=== PATIENT | male | born 1955 | race Caucasian/White ===

== ENCOUNTER 2017-02-16 18:20 | Inpatient (IN) | payer OTHER, MEDICAID ==
[~2017-02-16] VITALS: Ht 172.7 cm; Wt 64.9 kg
[2017-02-16 02:48] VITALS: BP 92/55
[2017-02-16] MEDS ORDERED: CHLORDIAZEPOXIDE 25MG CAPSULE PO ONE (19:30)
[2017-02-16] MEDS ORDERED: LORAZEPAM 2MG/ML CPJ IV ONE ×4 (19:30→20:30)
[2017-02-16] MEDS ORDERED: MULTIVITAMINS,THER W-MINERALS TABLET PO STA (19:31)
[2017-02-16] MEDS ORDERED: SODIUM CHLORIDE 0.9% 1,000 ML IV ONE (19:32)
[2017-02-16] MEDS ORDERED: ONDANSETRON HCL 4MG/2ML VIAL IV ONE (19:45)
[2017-02-16 19:54] LABS: BASOPHILS % 0.6 % (0.0-2.0); HEMATOCRIT. 29.1 % (42.0-52.0); HEMOGLOBIN. 9.2 g/dL (14.0-18.0); LYMPHOCYTES % 25.3 % (20.0-50.0); MEAN CORPUSCULAR HEMOGLOBIN 24.5 pg (28.0-32.0); MEAN CORPUSCULAR VOLUME 77.6 fL (80.0-94.0); MEAN PLATELET VOLUME 8.1 fl (7.4-10.4); MONOCYTES % 12.9 % (2.0-8.0); NEUTROPHILS % 61.2 % (40.0-76.0); RED BLOOD CELL COUNT 3.75 mill/uL (4.7-6.1)
[2017-02-16 19:57] LABS: CHLORIDE 96 mEq/L (98-107)
[2017-02-16 20:06] LABS: CARBON DIOXIDE 15 mEq/L (21-32); ETHANOL BLOOD 139 mg/dL
[2017-02-16 20:07] LABS: AMMONIA 172 uMol/L (<32)
[2017-02-16 20:21] LABS: PLATELET ESTIMATE MARKEDLY DECREASED
[2017-02-16 20:22] LABS: RED CELL DISTRIBUTION WIDTH 19.1 % (11.6-14.6)
[2017-02-16] MEDS ORDERED: LORAZEPAM 2MG/ML CPJ ONE ×2 (20:29→20:36)
[2017-02-16 20:33] LABS: PLATELET 48 x1000/uL (130-400)
[2017-02-16] MEDS ORDERED: MIDAZOLAM HCL 2 MG/2 ML VIAL IV ONE ×7 (20:45→22:00)
[2017-02-16] MEDS ORDERED: MIDAZOLAM HCL 5 MG/ML VIAL ONE ×2 (20:55→21:10)
[2017-02-16] MEDS ORDERED: ETOMIDATE 2MG/ML 10ML VIAL IV ONE (21:00)
[2017-02-16] MEDS ORDERED: SUCCINYLCHOLINE CHLORIDE 200MG/10ML VIAL IV ONE (21:00)
[2017-02-16] MEDS ORDERED: WATER IV ONE (22:30)
[2017-02-16] MEDS ORDERED: DEXT 5% IV ONE (22:30)
[2017-02-16] MEDS ORDERED: LORAZEPAM IV ONE (22:30)
[2017-02-16] MEDS ORDERED: DEXT 5%/0.45% NACL 1000ML 1,000 ML IV SCH (22:43)
[2017-02-16] MEDS ORDERED: DOCUSATE SODIUM 100MG CAPSULE PO PRN (22:45)
[2017-02-16] MEDS ORDERED: NA PHOS,M-B/NA PHOS,DI-BA ENEMA 118ML PR PRN (22:45)
[2017-02-16] MEDS ORDERED: WATER IV NR (23:00)
[2017-02-16] MEDS ORDERED: DEXT 5% IV NR (23:00)
[2017-02-16] MEDS ORDERED: LORAZEPAM IV NR (23:00)
[2017-02-16] MEDS ORDERED: ONDANSETRON HCL 4MG/2ML VIAL IV PRN (23:32)
[2017-02-16] MEDS ORDERED: KETOROLAC 15MG/ML VIAL IV PRN (23:32)
[2017-02-16] MEDS ORDERED: NITROGLYCERIN 0.4MG TABLET SL SL PRN (23:32)
[2017-02-16] MEDS ORDERED: DIPHENHYDRAMINE 50MG/ML VIAL IV PRN (23:33)
[2017-02-16] MEDS ORDERED: CLONIDINE 0.1MG TABLET PO PRN (23:33)
[2017-02-16] MEDS ORDERED: MAGNESIUM/ALUMINUM HYDROXIDE/SIMETHICONE 30ML UDC PO PRN (23:33)
[2017-02-16] MEDS ORDERED: GUAIFENESIN 200MG/10ML SUGAR FREE UDC PO PRN (23:33)
[2017-02-16] MEDS ORDERED: IPRATROPIUM/ALBUTEROL 0.5-3(2.5)MG/3ML NEB INH PRN (23:33)
[2017-02-16] MEDS ORDERED: LORAZEPAM 2MG/ML CPJ IV PRN (23:34)
[2017-02-17] VITALS (78 sets, daily range): BP systolic 78–131; BP diastolic 44–88
[2017-02-17] MEDS ORDERED: ETOMIDATE 2MG/ML 10ML VIAL IV ONE (00:30)
[2017-02-17] MEDS ORDERED: SUCCINYLCHOLINE CHLORIDE 200MG/10ML VIAL IV ONE (00:30)
[2017-02-17] MEDS ORDERED: PROPOFOL 10MG/ML 100ML 100 ML IV ONE (00:30)
[2017-02-17] MEDS ORDERED: ACETAMINOPHEN 650MG SUPP PR ONE (01:00)
[2017-02-17] MEDS: MVI, ADULT NO.1 10 ML, FOLIC ACID 1 MG, THIAMINE HCL 100 MG in SODIUM CHLORIDE 0.9% 1,0... IV SCH ×12 (02:00→21:40)
[2017-02-17] MEDS ORDERED: SODIUM CHLORIDE 0.9% 500 ML IV ONE (03:00)
[2017-02-17] MEDS ORDERED: MIDAZOLAM 50 MG in DEXTROSE 5% WATER 50 ML IV PRN (05:45)
[2017-02-17] MEDS ORDERED: MORPHINE SULFATE 4 MG/ML CPJ (NOT FOR IM USE) IV PRN (05:45)
[2017-02-17] MEDS ORDERED: CHLORDIAZEPOXIDE 25MG CAPSULE PO SCH (06:00)
[2017-02-17 06:13] LABS: BG BASE EXCESS -4.4 mmol/L (-2.0-2.0); BG CARBOXYHEMOGLOBIN 1.2 % (0.5-1.5); BG FRACTION INSPIRED OXYGEN 100; BG HCO3 ACT 18.4 mmol/L (22.0-26.0); BG OXYHEMOGLOBIN 97.8 % (94.0-97.0); BG PCO2 26.1 mmHg (35.0-45.0); BG PH 7.467 (7.350-7.450); BG SAMPLE SITE LEFT RADIAL; BG TIDAL VOLUME(mL) 550 mL; BG TOTAL HEMOGLOBIN 8.7 g/dL (12.0-18.0); BG VENT MODE VENT - A/C; BG VENT RATE 14 set
[2017-02-17] MEDS ORDERED: DEXT 5%/0.45% NACL 1000ML 1,000 ML IV SCH (06:30)
[2017-02-17] MEDS ORDERED: NA PHOS,M-B/NA PHOS,DI-BA ENEMA 118ML PR PRN (06:30)
[2017-02-17] MEDS ORDERED: MVI, ADULT NO.1 10 ML, FOLIC ACID 1 MG, THIAMINE HCL 100 MG in SODIUM CHLORIDE 0.9% 1,0... IV SCH ×4 (07:00)
[2017-02-17 08:56] LABS: HEMATOCRIT. 25.5 % (42.0-52.0); HEMOGLOBIN. 7.8 g/dL (14.0-18.0); MEAN CORPUSCULAR HEMOGLOBIN 23.5 pg (28.0-32.0); MEAN CORPUSCULAR VOLUME 77.4 fL (80.0-94.0); MEAN PLATELET VOLUME 8.2 fl (7.4-10.4); RED CELL DISTRIBUTION WIDTH 18.8 % (11.6-14.6)
[2017-02-17] MEDS ORDERED: FAMOTIDINE 20MG/2ML VIAL IV SCH ×2 (09:00)
[2017-02-17] MEDS ORDERED: CEFTRIAXONE 2 G in DEXTROSE 5% WATER 50 ML IV SCH (09:00)
[2017-02-17 09:11] LABS: PLATELET 27 x1000/uL (130-400)
[2017-02-17 09:18] LABS: CARBON DIOXIDE 22 mEq/L (21-32); CHLORIDE 105 mEq/L (98-107)
[2017-02-17] MEDS: PANTOPRAZOLE SODIUM 40 MG/VIAL IV SCH (09:22)
[2017-02-17 09:23] LABS: CREATINE KINASE 1244 IU/L (39-308)
[2017-02-17 09:24] LABS: AMMONIA 44 uMol/L (<32)
[2017-02-17] MEDS ORDERED: POTASSIUM CHLORIDE 20MEQ/PACKET PO SCH (10:30)
[2017-02-17] MEDS ORDERED: KCL 20MEQ/100ML PREMIX 100 ML IV SCH (11:00)
[2017-02-17] MEDS: POTASSIUM CHLORIDE INJ 30 MEQ in DEXT 5%/0.9% NACL 1,000 ML IV SCH ×2 (11:48→21:09)
[2017-02-17] MEDS: PIPERACILLIN/TAZ 3.375G PREMIX 50 ML IV SCH ×2 (13:45→21:40)
[2017-02-17] MEDS: CHLORDIAZEPOXIDE 25MG CAPSULE PO SCH ×2 (13:46→21:56)
[2017-02-17] MEDS: IPRATROPIUM/ALBUTEROL 0.5-3(2.5)MG/3ML NEB HHN SCH ×2 (14:16→20:49)
[2017-02-17 15:42] LABS: PLATELET ESTIMATE MARKEDLY DECREASED
[2017-02-17] MEDS: ACETAMINOPHEN 325MG TABLET PO PRN (23:26)
[2017-02-18] VITALS (87 sets, daily range): BP systolic 76–119; BP diastolic 42–78
[2017-02-18] MEDS: IPRATROPIUM/ALBUTEROL 0.5-3(2.5)MG/3ML NEB HHN SCH ×4 (02:18→20:34)
[2017-02-18 03:04] LABS: CLARITY URINE TURBID (CLEAR); COLOR URINE DARK YELLOW (YELLOW); GLUCOSE URINE NEGATIVE (NEGATIVE); KETONES URINE TRACE (NEGATIVE); LEUKOCYTE ESTERASE URINE TRACE (NEGATIVE); NITRITE URINE POSITIVE (NEGATIVE); OCCULT BLOOD URINE 3+ (NEGATIVE); PH URINE 5.5 (4.5-8.0); PROTEIN URINE 3+ (NEGATIVE); SPECIFIC GRAVITY URINE 1.034 (1.005-1.030); UROBILINOGEN URINE 0.2 E.U./dL (0.2-1.0)
[2017-02-18 03:22] LABS: *AMPHETAMINES SCREEN URINE NEGATIVE (NEGATIVE); *BARBITURATES SCREEN URINE NEGATIVE (NEGATIVE); *BENZODIAZEPINES SCREEN URINE PRESUMTIVE POSITIVE (NEGATIVE); *COCAINE SCREEN URINE NEGATIVE (NEGATIVE); CANNABINOID URINE SCREEN NEGATIVE (NEGATIVE); METHADONE URINE SCREEN NEGATIVE (NEGATIVE); OPIATES URINE SCREEN NEGATIVE (NEGATIVE); PHENCYCLIDINE URINE SCREEN NEGATIVE (NEGATIVE)
[2017-02-18] MEDS: PIPERACILLIN/TAZ 3.375G PREMIX 50 ML IV SCH ×3 (05:44→21:28)
[2017-02-18] MEDS: CHLORDIAZEPOXIDE 25MG CAPSULE PO SCH ×3 (05:45→21:28)
[2017-02-18] MEDS: POTASSIUM CHLORIDE INJ 30 MEQ in DEXT 5%/0.9% NACL 1,000 ML IV SCH ×2 (08:53→21:33)
[2017-02-18] MEDS: PANTOPRAZOLE SODIUM 40 MG/VIAL IV SCH (08:56)
[2017-02-18] MEDS: ACETAMINOPHEN 325MG TABLET PO PRN ×2 (08:57→19:27)
[2017-02-18 09:28] LABS: BG BASE EXCESS -4.1 mmol/L (-2.0-2.0); BG CARBOXYHEMOGLOBIN 1.3 % (0.5-1.5); BG DEOXYHEMOGLOBIN 0.8 % (0.0-5.0); BG FRACTION INSPIRED OXYGEN 35; BG HCO3 ACT 18.7 mmol/L (22.0-26.0); BG OXYGEN SATURATION 99.2 % (92.0-98.5); BG OXYHEMOGLOBIN 97.9 % (94.0-97.0); BG PCO2 26.3 mmHg (35.0-45.0); BG PO2 171.1 mmHg (75.0-100.0); BG SAMPLE SITE RIGHT RADIAL; BG TIDAL VOLUME(mL) 550 mL; BG TOTAL HEMOGLOBIN 8.5 g/dL (12.0-18.0); BG VENT MODE VENT - A/C; BG VENT RATE 12 set
[2017-02-18] MEDS: NOREPINEPHRINE 4MG in DEXT 5% WATER 250ML IV PRN (12:14)
[2017-02-18 12:18] LABS: HEPATITIS B SURFACE ANTIGEN NEGATIVE
[2017-02-18 12:46] LABS: HEPATITIS B CORE AB IGM NEGATIVE
[2017-02-18] MEDS: MVI, ADULT NO.1 10 ML, FOLIC ACID 1 MG, THIAMINE HCL 100 MG in SODIUM CHLORIDE 0.9% 1,0... IV SCH ×4 (21:28)
[2017-02-19] VITALS (96 sets, daily range): BP systolic 71–149; BP diastolic 45–96
[2017-02-19] MEDS: IPRATROPIUM/ALBUTEROL 0.5-3(2.5)MG/3ML NEB HHN SCH ×4 (02:06→19:51)
[2017-02-19] MEDS: NOREPINEPHRINE 4MG in DEXT 5% WATER 250ML IV PRN ×3 (03:05→21:23)
[2017-02-19] MEDS: CHLORDIAZEPOXIDE 25MG CAPSULE PO SCH ×3 (05:19→21:23)
[2017-02-19] MEDS: PIPERACILLIN/TAZ 3.375G PREMIX 50 ML IV SCH ×3 (05:19→21:23)
[2017-02-19] MEDS: ACETAMINOPHEN 325MG TABLET PO PRN (05:19)
[2017-02-19] MEDS: PANTOPRAZOLE SODIUM 40 MG/VIAL IV SCH (08:40)
[2017-02-19 09:12] LABS: BG BASE EXCESS -5.8 mmol/L (-2.0-2.0); BG DEOXYHEMOGLOBIN 2.5 % (0.0-5.0); BG FRACTION INSPIRED OXYGEN 35; BG HCO3 ACT 18.6 mmol/L (22.0-26.0); BG OXYGEN SATURATION 97.5 % (92.0-98.5); BG OXYHEMOGLOBIN 96.5 % (94.0-97.0); BG PCO2 32.1 mmHg (35.0-45.0); BG SAMPLE SITE RIGHT RADIAL; BG TIDAL VOLUME(mL) 550 mL; BG TOTAL HEMOGLOBIN 9.2 g/dL (12.0-18.0); BG VENT MODE VENT - A/C; BG VENT RATE 12 set
[2017-02-19 10:55] LABS: BASOPHILS % 0.6 % (0.0-2.0); EOSINOPHILS % 0.1 % (0.0-5.0); LYMPHOCYTES % 11.9 % (20.0-50.0); MEAN CORPUSCULAR VOLUME 79.4 fL (80.0-94.0); MEAN PLATELET VOLUME 9.4 fl (7.4-10.4); MONOCYTES % 13.7 % (2.0-8.0); NEUTROPHILS % 73.7 % (40.0-76.0); PLATELET 58 x1000/uL (130-400); RED BLOOD CELL COUNT 3.82 mill/uL (4.7-6.1); RED CELL DISTRIBUTION WIDTH 19.2 % (11.6-14.6)
[2017-02-19 10:56] LABS: HEMATOCRIT. 30.3 % (42.0-52.0); HEMOGLOBIN. 9.2 g/dL (14.0-18.0)
[2017-02-19 11:01] LABS: CHLORIDE 110 mEq/L (98-107)
[2017-02-19 11:07] LABS: CARBON DIOXIDE 21 mEq/L (21-32)
[2017-02-19 12:26] LABS: AMMONIA 35 uMol/L (<32)
[2017-02-19] MEDS: POTASSIUM CHLORIDE INJ 30 MEQ in DEXT 5%/0.9% NACL 1,000 ML IV SCH (13:40)
[2017-02-19] MEDS ORDERED: SODIUM BICARBONATE 4.2% 5 MEQ/10 ML DISP.SYRIN IV ONE (14:35)
[2017-02-19] MEDS ORDERED: LIDOCAINE HCL 1% 20ML VIAL (Pyxis) INJ ONE (14:35)
[2017-02-19] MEDS ORDERED: KCL 20MEQ/100ML PREMIX 100 ML IV NR (15:30)
[2017-02-19] MEDS: MVI, ADULT NO.1 10 ML, FOLIC ACID 1 MG, THIAMINE HCL 100 MG in SODIUM CHLORIDE 0.9% 1,0... IV SCH ×4 (21:38)
[2017-02-20] VITALS (90 sets, daily range): BP systolic 78–133; BP diastolic 48–90
[2017-02-20] MEDS: IPRATROPIUM/ALBUTEROL 0.5-3(2.5)MG/3ML NEB HHN SCH ×4 (01:59→20:22)
[2017-02-20 05:49] LABS: HEMATOCRIT. 31.4 % (42.0-52.0); HEMOGLOBIN. 9.5 g/dL (14.0-18.0); MEAN CORPUSCULAR HEMOGLOBIN 24.1 pg (28.0-32.0); MEAN CORPUSCULAR VOLUME 79.7 fL (80.0-94.0); PLATELET 70 x1000/uL (130-400); RED BLOOD CELL COUNT 3.94 mill/uL (4.7-6.1); RED CELL DISTRIBUTION WIDTH 19.1 % (11.6-14.6)
[2017-02-20] MEDS: POTASSIUM CHLORIDE INJ 30 MEQ in DEXT 5%/0.9% NACL 1,000 ML IV SCH ×3 (06:26→17:50)
[2017-02-20] MEDS: PIPERACILLIN/TAZ 3.375G PREMIX 50 ML IV SCH ×3 (06:26→21:13)
[2017-02-20] MEDS: CHLORDIAZEPOXIDE 25MG CAPSULE PO SCH ×3 (06:26→21:13)
[2017-02-20 06:42] LABS: AMMONIA 59 uMol/L (<32)
[2017-02-20 06:54] LABS: CARBON DIOXIDE 21 mEq/L (21-32); CHLORIDE 111 mEq/L (98-107)
[2017-02-20 07:58] LABS: PLATELET ESTIMATE DECREASED
[2017-02-20 08:58] LABS: CREATINE KINASE 37340 IU/L (39-308)
[2017-02-20 09:45] LABS: BG BASE EXCESS -5.3 mmol/L (-2.0-2.0); BG CARBOXYHEMOGLOBIN 1.1 % (0.5-1.5); BG DEOXYHEMOGLOBIN 1.4 % (0.0-5.0); BG FRACTION INSPIRED OXYGEN 35; BG HCO3 ACT 18.1 mmol/L (22.0-26.0); BG OXYGEN SATURATION 98.6 % (92.0-98.5); BG OXYHEMOGLOBIN 97.5 % (94.0-97.0); BG PCO2 27.9 mmHg (35.0-45.0); BG PH 7.431 (7.350-7.450); BG PO2 130.1 mmHg (75.0-100.0); BG SAMPLE SITE RIGHT RADIAL; BG TIDAL VOLUME(mL) 550 mL; BG TOTAL HEMOGLOBIN 8.7 g/dL (12.0-18.0); BG VENT MODE VENT - A/C; BG VENT RATE 12 set
[2017-02-20] MEDS: PANTOPRAZOLE SODIUM 40 MG/VIAL IV SCH (09:55)
[2017-02-20] MEDS: NOREPINEPHRINE 4MG in DEXT 5% WATER 250ML IV PRN ×2 (09:56→22:25)
[2017-02-20] MEDS: ACETAMINOPHEN 325MG TABLET PO PRN (17:38)
[2017-02-20] MEDS: MVI, ADULT NO.1 10 ML, FOLIC ACID 1 MG, THIAMINE HCL 100 MG in SODIUM CHLORIDE 0.9% 1,0... IV SCH ×4 (21:13)
[2017-02-21] VITALS (88 sets, daily range): BP systolic 89–130; BP diastolic 48–91
[2017-02-21] MEDS: IPRATROPIUM/ALBUTEROL 0.5-3(2.5)MG/3ML NEB HHN SCH ×4 (01:39→20:41)
[2017-02-21] MEDS: POTASSIUM CHLORIDE INJ 30 MEQ in DEXT 5%/0.9% NACL 1,000 ML IV SCH ×2 (05:20→16:29)
[2017-02-21] MEDS: CHLORDIAZEPOXIDE 25MG CAPSULE PO SCH ×3 (05:21→21:30)
[2017-02-21] MEDS: PIPERACILLIN/TAZ 3.375G PREMIX 50 ML IV SCH ×3 (05:21→21:31)
[2017-02-21 06:15] LABS: BASOPHILS % 0.5 % (0.0-2.0); EOSINOPHILS % 0.9 % (0.0-5.0); HEMATOCRIT. 26.6 % (42.0-52.0); HEMOGLOBIN. 8.2 g/dL (14.0-18.0); LYMPHOCYTES % 12.7 % (20.0-50.0); MEAN CORPUSCULAR HEMOGLOBIN 24.4 pg (28.0-32.0); MEAN CORPUSCULAR VOLUME 79.2 fL (80.0-94.0); MEAN PLATELET VOLUME 9.8 fl (7.4-10.4); MONOCYTES % 13.7 % (2.0-8.0); NEUTROPHILS % 72.2 % (40.0-76.0); PLATELET 91 x1000/uL (130-400); RED BLOOD CELL COUNT 3.36 mill/uL (4.7-6.1); RED CELL DISTRIBUTION WIDTH 19.2 % (11.6-14.6)
[2017-02-21 06:31] LABS: AMMONIA 87 uMol/L (<32)
[2017-02-21 06:45] LABS: CARBON DIOXIDE 21 mEq/L (21-32); CHLORIDE 114 mEq/L (98-107)
[2017-02-21 07:13] LABS: BG BASE EXCESS -4.1 mmol/L (-2.0-2.0); BG CARBOXYHEMOGLOBIN 1.2 % (0.5-1.5); BG DEOXYHEMOGLOBIN 1.6 % (0.0-5.0); BG HCO3 ACT 18.9 mmol/L (22.0-26.0); BG METHEMOGLOBIN 0.3 % (0.0-1.5); BG OXYGEN SATURATION 98.4 % (92.0-98.5); BG OXYHEMOGLOBIN 96.9 % (94.0-97.0); BG PCO2 28.1 mmHg (35.0-45.0); BG PH 7.446 (7.350-7.450); BG SAMPLE SITE RIGHT RADIAL; BG TIDAL VOLUME(mL) 550 mL; BG TOTAL HEMOGLOBIN 10.5 g/dL (12.0-18.0); BG VENT MODE VENT - A/C; BG VENT RATE 12 set
[2017-02-21] MEDS: NOREPINEPHRINE 4MG in DEXT 5% WATER 250ML IV PRN ×2 (08:37→22:32)
[2017-02-21 09:04] LABS: CREATINE KINASE 26290 IU/L (39-308)
[2017-02-21] MEDS: PANTOPRAZOLE SODIUM 40 MG/VIAL IV SCH (09:36)
[2017-02-21] MEDS: ACETAMINOPHEN 325MG TABLET PO PRN (12:16)
[2017-02-21] MEDS: LACTULOSE 20G/30ML UDC PO SCH ×2 (13:44→21:30)
[2017-02-21 15:30] LABS: HEPATITIS A AB IGM NEGATIVE (NEGATIVE)
[2017-02-21] MEDS: MVI, ADULT NO.1 10 ML, FOLIC ACID 1 MG, THIAMINE HCL 100 MG in SODIUM CHLORIDE 0.9% 1,0... IV SCH ×4 (21:30)
[2017-02-22] VITALS (72 sets, daily range): BP systolic 87–130; BP diastolic 52–81
[2017-02-22] MEDS: POTASSIUM CHLORIDE INJ 30 MEQ in DEXT 5%/0.9% NACL 1,000 ML IV SCH ×3 (00:47→20:03)
[2017-02-22] MEDS: IPRATROPIUM/ALBUTEROL 0.5-3(2.5)MG/3ML NEB HHN SCH ×5 (02:14→20:09)
[2017-02-22] MEDS: LACTULOSE 20G/30ML UDC PO SCH (05:22)
[2017-02-22] MEDS: PIPERACILLIN/TAZ 3.375G PREMIX 50 ML IV SCH ×2 (05:22→13:11)
[2017-02-22] MEDS: CHLORDIAZEPOXIDE 25MG CAPSULE PO SCH (05:22)
[2017-02-22 06:56] LABS: CARBON DIOXIDE 24 mEq/L (21-32); CHLORIDE 115 mEq/L (98-107)
[2017-02-22 07:13] LABS: AMMONIA 88 uMol/L (<32)
[2017-02-22] MEDS: PANTOPRAZOLE SODIUM 40 MG/VIAL IV SCH (08:37)
[2017-02-22 10:09] LABS: CREATINE KINASE 15290 IU/L (39-308)
[2017-02-22] MEDS: METOCLOPRAMIDE HCL 10MG/2ML VIAL IV SCH ×3 (11:22→23:54)
[2017-02-22] MEDS: LACTULOSE 20G/30ML UDC NG SCH ×4 (11:22→23:54)
[2017-02-22] MEDS: RIFAXIMIN 550 MG TABLET PO SCH ×2 (13:09→20:03)
[2017-02-22] MEDS: ACETYLCYSTEINE 100MG/ML 10% VIAL 4ML INH SCH ×2 (15:47→20:09)
[2017-02-22] MEDS: MVI, ADULT NO.1 10 ML, FOLIC ACID 1 MG, THIAMINE HCL 100 MG in SODIUM CHLORIDE 0.9% 1,0... IV SCH ×4 (20:03)
[2017-02-23] VITALS (46 sets, daily range): BP systolic 93–140; BP diastolic 54–97
[2017-02-23] MEDS: IPRATROPIUM/ALBUTEROL 0.5-3(2.5)MG/3ML NEB HHN SCH ×6 (00:17→20:39)
[2017-02-23] MEDS: ACETYLCYSTEINE 100MG/ML 10% VIAL 4ML INH SCH ×4 (00:17→11:14)
[2017-02-23] MEDS: LACTULOSE 20G/30ML UDC NG SCH ×6 (03:23→23:32)
[2017-02-23] MEDS: POTASSIUM CHLORIDE INJ 30 MEQ in DEXT 5%/0.9% NACL 1,000 ML IV SCH (05:03)
[2017-02-23] MEDS: METOCLOPRAMIDE HCL 10MG/2ML VIAL IV SCH ×2 (06:00→11:50)
[2017-02-23] MEDS: PANTOPRAZOLE SODIUM 40 MG/VIAL IV SCH (08:12)
[2017-02-23] MEDS: RIFAXIMIN 550 MG TABLET PO SCH ×2 (08:12→20:37)
[2017-02-23 09:32] LABS: CARBON DIOXIDE 26 mEq/L (21-32); CHLORIDE 116 mEq/L (98-107)
[2017-02-23 09:43] LABS: AMMONIA 89 uMol/L (<32)
[2017-02-23 12:16] LABS: BG BASE EXCESS -1.6 mmol/L (-2.0-2.0); BG CARBOXYHEMOGLOBIN 0.6 % (0.5-1.5); BG DEOXYHEMOGLOBIN 1.9 % (0.0-5.0); BG HCO3 ACT 21.4 mmol/L (22.0-26.0); BG METHEMOGLOBIN 0.2 % (0.0-1.5); BG OXYGEN SATURATION 98.1 % (92.0-98.5); BG OXYHEMOGLOBIN 97.3 % (94.0-97.0); BG PCO2 29.7 mmHg (35.0-45.0); BG PH 7.476 (7.350-7.450); BG PO2 121.5 mmHg (75.0-100.0); BG SAMPLE SITE RIGHT RADIAL; BG TIDAL VOLUME(mL) 550 mL; BG TOTAL HEMOGLOBIN 8.8 g/dL (12.0-18.0); BG VENT MODE VENT - A/C; BG VENT RATE 12 set
[2017-02-23 13:16] LABS: PHOSPHORUS 1.7 mg/dL (2.5-4.9)
[2017-02-23] MEDS: DEXT 5%/0.45% NACL KCL 20MEQ/L 1,000 ML IV SCH (13:22)
[2017-02-23] MEDS: METRONIDAZOLE 500 MG PREMIX 100 ML IV SCH ×2 (13:23→21:32)
[2017-02-23] MEDS: CEFTRIAXONE 1 G PREMIX 50 ML IV SCH (14:38)
[2017-02-23] MEDS: LEVETIRACETAM 500 MG in SODIUM CHLORIDE 0.9% 100 ML IV SCH ×2 (14:38→20:36)
[2017-02-23] MEDS ORDERED: MAGNESIUM 2 G PREMIX 50 ML IV NR (17:00)
[2017-02-23] MEDS: CARBAMAZEPINE 200MG TABLET PO SCH (17:03)
[2017-02-23] MEDS ORDERED: POTASSIUM PHOS,M-BASIC-D-BASIC 10 MMOL in DEXT 5% WATER 246.6667 ML IV NR (18:00)
[2017-02-24] VITALS (37 sets, daily range): BP systolic 79–130; BP diastolic 43–88
[2017-02-24] MEDS: IPRATROPIUM/ALBUTEROL 0.5-3(2.5)MG/3ML NEB HHN SCH ×6 (00:25→20:19)
[2017-02-24] MEDS: LACTULOSE 20G/30ML UDC NG SCH ×5 (04:57→19:30)
[2017-02-24] MEDS: ACETAMINOPHEN 325MG TABLET PO PRN ×3 (04:58→22:46)
[2017-02-24] MEDS: DEXT 5%/0.45% NACL KCL 20MEQ/L 1,000 ML IV SCH (04:59)
[2017-02-24] MEDS: METRONIDAZOLE 500 MG PREMIX 100 ML IV SCH (05:09)
[2017-02-24] MEDS: CARBAMAZEPINE 200MG TABLET PO SCH ×2 (06:52→18:00)
[2017-02-24] MEDS: RIFAXIMIN 550 MG TABLET PO SCH ×2 (08:16→20:21)
[2017-02-24] MEDS: FOLIC ACID 1MG TABLET NG SCH (08:16)
[2017-02-24] MEDS: PANTOPRAZOLE SODIUM 40 MG/VIAL IV SCH (08:18)
[2017-02-24] MEDS: LEVETIRACETAM 500 MG in SODIUM CHLORIDE 0.9% 100 ML IV SCH ×2 (08:19→20:21)
[2017-02-24] MEDS: CEFTRIAXONE 1 G PREMIX 50 ML IV SCH (09:00)
[2017-02-24] MEDS: MULTIVITAMINS,THER W-MINERALS TABLET NG SCH (09:02)
[2017-02-24] MEDS: THIAMINE HCL 100MG TABLET NG SCH (09:45)
[2017-02-24 10:17] LABS: HEMATOCRIT. 23.3 % (42.0-52.0); HEMOGLOBIN. 7.3 g/dL (14.0-18.0); MEAN CORPUSCULAR VOLUME 79.9 fL (80.0-94.0); MEAN PLATELET VOLUME 8.3 fl (7.4-10.4); PLATELET 154 x1000/uL (130-400); RED BLOOD CELL COUNT 2.91 mill/uL (4.7-6.1); RED CELL DISTRIBUTION WIDTH 19.4 % (11.6-14.6)
[2017-02-24 10:29] LABS: AMMONIA 45 uMol/L (<32)
[2017-02-24 10:37] LABS: CARBON DIOXIDE 26 mEq/L (21-32); CHLORIDE 113 mEq/L (98-107); PHOSPHORUS 2.9 mg/dL (2.5-4.9)
[2017-02-24 10:44] LABS: PLATELET ESTIMATE NORMAL
[2017-02-24 10:49] LABS: CREATINE KINASE 6179 IU/L (39-308)
[2017-02-24] MEDS: METOCLOPRAMIDE HCL 10MG/2ML VIAL IV SCH ×2 (12:42→18:00)
[2017-02-24] MEDS ORDERED: VANCOMYCIN 1250MG in DEXTROSE 5% WATER 250ML IV NR (15:00)
[2017-02-24] MEDS: PIPERACILLIN/TAZ 3.375G PREMIX 50 ML IV SCH ×2 (15:16→22:00)
[2017-02-24] MEDS ORDERED: PIPERACILLIN/TAZOBACTAM 3.375 G in DEXT 5% WATER 100 ML IV SCH (18:00)
[2017-02-24 18:03] LABS: CLARITY URINE CLEAR (CLEAR); COLOR URINE DARK YELLOW (YELLOW); GLUCOSE URINE NEGATIVE (NEGATIVE); KETONES URINE NEGATIVE (NEGATIVE); LEUKOCYTE ESTERASE URINE TRACE (NEGATIVE); NITRITE URINE NEGATIVE (NEGATIVE); OCCULT BLOOD URINE 3+ (NEGATIVE); PROTEIN URINE 1+ (NEGATIVE); SPECIFIC GRAVITY URINE 1.028 (1.005-1.030); UROBILINOGEN URINE 0.2 E.U./dL (0.2-1.0)
[2017-02-25] VITALS (42 sets, daily range): BP systolic 96–132; BP diastolic 52–83
[2017-02-25] MEDS: METOCLOPRAMIDE HCL 10MG/2ML VIAL IV SCH ×4 (00:05→18:49)
[2017-02-25] MEDS: LACTULOSE 20G/30ML UDC NG SCH ×7 (00:05→23:25)
[2017-02-25] MEDS: VANCOMYCIN 1 G PREMIX 200 ML IV SCH ×3 (00:06→16:45)
[2017-02-25] MEDS: IPRATROPIUM/ALBUTEROL 0.5-3(2.5)MG/3ML NEB HHN SCH ×6 (00:29→20:33)
[2017-02-25] MEDS: DEXT 5%/0.45% NACL KCL 20MEQ/L 1,000 ML IV SCH ×2 (00:33→15:06)
[2017-02-25] MEDS: ACETAMINOPHEN 325MG TABLET PO PRN (02:57)
[2017-02-25] MEDS: PIPERACILLIN/TAZ 3.375G PREMIX 50 ML IV SCH ×3 (03:50→15:13)
[2017-02-25 04:59] LABS: BASOPHILS % 1.3 % (0.0-2.0); HEMATOCRIT. 23.7 % (42.0-52.0); HEMOGLOBIN. 7.4 g/dL (14.0-18.0); LYMPHOCYTES % 17.8 % (20.0-50.0); MEAN CORPUSCULAR HEMOGLOBIN 24.8 pg (28.0-32.0); MEAN CORPUSCULAR VOLUME 79.9 fL (80.0-94.0); MEAN PLATELET VOLUME 8.6 fl (7.4-10.4); MONOCYTES % 14.8 % (2.0-8.0); NEUTROPHILS % 65.1 % (40.0-76.0); PLATELET 181 x1000/uL (130-400); RED BLOOD CELL COUNT 2.97 mill/uL (4.7-6.1); RED CELL DISTRIBUTION WIDTH 19.6 % (11.6-14.6)
[2017-02-25 05:16] LABS: CARBON DIOXIDE 25 mEq/L (21-32); CHLORIDE 110 mEq/L (98-107)
[2017-02-25 05:27] LABS: CREATINE KINASE 4864 IU/L (39-308)
[2017-02-25] MEDS: CARBAMAZEPINE 200MG TABLET PO SCH ×2 (06:13→16:44)
[2017-02-25] MEDS: PANTOPRAZOLE SODIUM 40 MG/VIAL IV SCH (08:36)
[2017-02-25] MEDS: MULTIVITAMINS,THER W-MINERALS TABLET NG SCH (08:36)
[2017-02-25] MEDS: FOLIC ACID 1MG TABLET NG SCH (08:36)
[2017-02-25] MEDS: LEVETIRACETAM 500 MG in SODIUM CHLORIDE 0.9% 100 ML IV SCH ×2 (08:36→21:43)
[2017-02-25] MEDS: RIFAXIMIN 550 MG TABLET PO SCH ×2 (08:36→21:52)
[2017-02-25] MEDS: THIAMINE HCL 100MG TABLET NG SCH (08:43)
[2017-02-25] MEDS: ACETAMINOPHEN 650MG/20.3ML UDC NG PRN (23:25)
[2017-02-26] VITALS (45 sets, daily range): BP systolic 100–127; BP diastolic 53–76
[2017-02-26] MEDS: PIPERACILLIN/TAZ 3.375G PREMIX 50 ML IV SCH ×5 (00:20→20:45)
[2017-02-26] MEDS: VANCOMYCIN 1 G PREMIX 200 ML IV SCH ×2 (00:21→07:00)
[2017-02-26] MEDS: IPRATROPIUM/ALBUTEROL 0.5-3(2.5)MG/3ML NEB HHN SCH ×6 (00:29→21:01)
[2017-02-26] MEDS: METOCLOPRAMIDE HCL 10MG/2ML VIAL IV SCH ×5 (01:00→23:59)
[2017-02-26] MEDS: LACTULOSE 20G/30ML UDC NG SCH ×6 (04:08→23:59)
[2017-02-26] MEDS: CARBAMAZEPINE 200MG TABLET PO SCH ×2 (06:33→17:03)
[2017-02-26] MEDS: DEXT 5%/0.45% NACL KCL 20MEQ/L 1,000 ML IV SCH (06:42)
[2017-02-26] MEDS: PANTOPRAZOLE SODIUM 40 MG/VIAL IV SCH (08:32)
[2017-02-26] MEDS: MULTIVITAMINS,THER W-MINERALS TABLET NG SCH (08:32)
[2017-02-26] MEDS: FOLIC ACID 1MG TABLET NG SCH (08:32)
[2017-02-26] MEDS: THIAMINE HCL 100MG TABLET NG SCH (08:32)
[2017-02-26] MEDS: RIFAXIMIN 550 MG TABLET PO SCH ×2 (08:32→20:45)
[2017-02-26] MEDS: LEVETIRACETAM 500 MG in SODIUM CHLORIDE 0.9% 100 ML IV SCH ×2 (08:32→22:07)
[2017-02-26] MEDS: VANCOMYCIN 1250MG in DEXTROSE 5% WATER 250ML IV SCH ×2 (14:10→22:14)
[2017-02-26] MEDS: ACETAMINOPHEN 650MG/20.3ML UDC NG PRN (20:45)
[2017-02-27] VITALS (47 sets, daily range): BP systolic 103–129; BP diastolic 64–81
[2017-02-27] MEDS: IPRATROPIUM/ALBUTEROL 0.5-3(2.5)MG/3ML NEB HHN SCH ×5 (00:54→20:55)
[2017-02-27] MEDS: PIPERACILLIN/TAZ 3.375G PREMIX 50 ML IV SCH ×4 (01:03→20:33)
[2017-02-27] MEDS: LACTULOSE 20G/30ML UDC NG SCH ×6 (03:52→23:42)
[2017-02-27] MEDS: DEXT 5%/0.45% NACL KCL 20MEQ/L 1,000 ML IV SCH ×2 (04:00→18:00)
[2017-02-27] MEDS: VANCOMYCIN 1250MG in DEXTROSE 5% WATER 250ML IV SCH ×2 (05:31→13:56)
[2017-02-27] MEDS: METOCLOPRAMIDE HCL 10MG/2ML VIAL IV SCH ×4 (05:31→23:42)
[2017-02-27] MEDS: CARBAMAZEPINE 200MG TABLET PO SCH ×2 (05:54→17:03)
[2017-02-27 06:14] LABS: HEMATOCRIT. 26.2 % (42.0-52.0); HEMOGLOBIN. 8.1 g/dL (14.0-18.0); MEAN CORPUSCULAR HEMOGLOBIN 24.9 pg (28.0-32.0); MEAN CORPUSCULAR VOLUME 80.2 fL (80.0-94.0); MEAN PLATELET VOLUME 8.1 fl (7.4-10.4); PLATELET 194 x1000/uL (130-400); RED BLOOD CELL COUNT 3.26 mill/uL (4.7-6.1); RED CELL DISTRIBUTION WIDTH 22.2 % (11.6-14.6)
[2017-02-27 06:26] LABS: CARBON DIOXIDE 28 mEq/L (21-32); CHLORIDE 104 mEq/L (98-107)
[2017-02-27] MEDS: FOLIC ACID 1MG TABLET NG SCH (08:22)
[2017-02-27] MEDS: PANTOPRAZOLE SODIUM 40 MG/VIAL IV SCH (08:22)
[2017-02-27] MEDS: MULTIVITAMINS,THER W-MINERALS TABLET NG SCH (08:22)
[2017-02-27] MEDS: THIAMINE HCL 100MG TABLET NG SCH (08:22)
[2017-02-27] MEDS: RIFAXIMIN 550 MG TABLET PO SCH ×2 (08:40→21:14)
[2017-02-27] MEDS: LEVETIRACETAM 500 MG in SODIUM CHLORIDE 0.9% 100 ML IV SCH ×2 (09:34→21:14)
[2017-02-27 11:58] LABS: PLATELET ESTIMATE NORMAL
[2017-02-28] VITALS (48 sets, daily range): BP systolic 99–120; BP diastolic 59–75
[2017-02-28] MEDS: IPRATROPIUM/ALBUTEROL 0.5-3(2.5)MG/3ML NEB HHN SCH ×6 (00:54→20:25)
[2017-02-28] MEDS: PIPERACILLIN/TAZ 3.375G PREMIX 50 ML IV SCH ×2 (01:16→08:26)
[2017-02-28] MEDS: LACTULOSE 20G/30ML UDC NG SCH ×6 (03:45→23:32)
[2017-02-28 05:40] LABS: AMMONIA 57 uMol/L (<32)
[2017-02-28] MEDS: CARBAMAZEPINE 200MG TABLET PO SCH ×2 (06:15→16:11)
[2017-02-28] MEDS: METOCLOPRAMIDE HCL 10MG/2ML VIAL IV SCH ×4 (06:15→23:31)
[2017-02-28] MEDS: THIAMINE HCL 100MG TABLET NG SCH (08:26)
[2017-02-28] MEDS: PANTOPRAZOLE SODIUM 40 MG/VIAL IV SCH (08:26)
[2017-02-28] MEDS: FOLIC ACID 1MG TABLET NG SCH (08:26)
[2017-02-28] MEDS: MULTIVITAMINS,THER W-MINERALS TABLET NG SCH (08:26)
[2017-02-28] MEDS: ACETAMINOPHEN 650MG/20.3ML UDC NG PRN (08:27)
[2017-02-28] MEDS: RIFAXIMIN 550 MG TABLET PO SCH ×2 (08:36→21:10)
[2017-02-28] MEDS: LEVETIRACETAM 500 MG in SODIUM CHLORIDE 0.9% 100 ML IV SCH ×2 (09:14→21:10)
[2017-02-28] MEDS: MEROPENEM 1,000 MG in SODIUM CHLORIDE 0.9% 100 ML IV SCH ×2 (14:43→21:28)
[2017-02-28] MEDS: VANCOMYCIN 1250MG in DEXTROSE 5% WATER 250ML IV SCH ×2 (16:11→23:31)
[2017-02-28] MEDS: DEXT 5%/0.45% NACL KCL 20MEQ/L 1,000 ML IV SCH (17:36)
[2017-03-01] VITALS (52 sets, daily range): BP systolic 108–143; BP diastolic 54–88
[2017-03-01] MEDS: IPRATROPIUM/ALBUTEROL 0.5-3(2.5)MG/3ML NEB HHN SCH ×6 (00:16→19:47)
[2017-03-01] MEDS: LACTULOSE 20G/30ML UDC NG SCH ×5 (03:50→20:18)
[2017-03-01] MEDS: DEXT 5%/0.45% NACL KCL 20MEQ/L 1,000 ML IV SCH ×2 (03:50→20:39)
[2017-03-01] MEDS: MEROPENEM 1,000 MG in SODIUM CHLORIDE 0.9% 100 ML IV SCH ×3 (05:27→22:12)
[2017-03-01] MEDS: METOCLOPRAMIDE HCL 10MG/2ML VIAL IV SCH ×3 (05:27→17:00)
[2017-03-01 05:41] LABS: BASOPHILS % 1.4 % (0.0-2.0); EOSINOPHILS % 0.3 % (0.0-5.0); HEMATOCRIT. 26.4 % (42.0-52.0); HEMOGLOBIN. 8.3 g/dL (14.0-18.0); LYMPHOCYTES % 13.5 % (20.0-50.0); MEAN CORPUSCULAR HEMOGLOBIN 25.3 pg (28.0-32.0); MEAN CORPUSCULAR VOLUME 80.6 fL (80.0-94.0); MEAN PLATELET VOLUME 8.1 fl (7.4-10.4); NEUTROPHILS % 71.8 % (40.0-76.0); PLATELET 231 x1000/uL (130-400); RED BLOOD CELL COUNT 3.27 mill/uL (4.7-6.1); RED CELL DISTRIBUTION WIDTH 23.1 % (11.6-14.6)
[2017-03-01 06:23] LABS: CARBON DIOXIDE 30 mEq/L (21-32); CHLORIDE 100 mEq/L (98-107)
[2017-03-01 06:33] LABS: CREATINE KINASE 1352 IU/L (39-308)
[2017-03-01] MEDS ORDERED: LACTULOSE 20G/30ML UDC ONE (08:15)
[2017-03-01] MEDS: FOLIC ACID 1MG TABLET NG SCH (08:18)
[2017-03-01] MEDS: THIAMINE HCL 100MG TABLET NG SCH (08:18)
[2017-03-01] MEDS: MULTIVITAMINS,THER W-MINERALS TABLET NG SCH (08:18)
[2017-03-01] MEDS: PANTOPRAZOLE SODIUM 40 MG/VIAL IV SCH (08:18)
[2017-03-01] MEDS: RIFAXIMIN 550 MG TABLET PO SCH ×2 (08:18→20:18)
[2017-03-01] MEDS: VANCOMYCIN 1250MG in DEXTROSE 5% WATER 250ML IV SCH ×2 (08:20→15:59)
[2017-03-01 08:32] LABS: BG CARBOXYHEMOGLOBIN 0.7 % (0.5-1.5); BG DEOXYHEMOGLOBIN 1.6 % (0.0-5.0); BG FRACTION INSPIRED OXYGEN 40; BG METHEMOGLOBIN 0.3 % (0.0-1.5); BG OXYGEN SATURATION 98.4 % (92.0-98.5); BG OXYHEMOGLOBIN 97.4 % (94.0-97.0); BG PH 7.482 (7.350-7.450); BG PO2 118.2 mmHg (75.0-100.0); BG SAMPLE SITE LEFT BRACHIAL; BG TIDAL VOLUME(mL) 550 mL; BG TOTAL HEMOGLOBIN 8.6 g/dL (12.0-18.0); BG VENT MODE VENT - A/C; BG VENT RATE 12 set
[2017-03-01] MEDS: ACETAMINOPHEN 650MG/20.3ML UDC NG PRN (08:38)
[2017-03-01] MEDS: LEVETIRACETAM 500 MG in SODIUM CHLORIDE 0.9% 100 ML IV SCH ×2 (09:09→20:37)
[2017-03-01] MEDS: CARBAMAZEPINE 200MG TABLET PO SCH ×2 (10:38→16:00)
[2017-03-01 12:55] LABS: INR 1.2; PROTHROMBIN TIME 12.7 sec (9.4-11.6)
[2017-03-02] VITALS (90 sets, daily range): BP systolic 99–133; BP diastolic 54–81
[2017-03-02] MEDS: IPRATROPIUM/ALBUTEROL 0.5-3(2.5)MG/3ML NEB HHN SCH ×8 (00:03→19:47)
[2017-03-02] MEDS: VANCOMYCIN 1250MG in DEXTROSE 5% WATER 250ML IV SCH ×2 (00:23→08:43)
[2017-03-02] MEDS: METOCLOPRAMIDE HCL 10MG/2ML VIAL IV SCH ×4 (00:23→17:22)
[2017-03-02] MEDS: LACTULOSE 20G/30ML UDC NG SCH ×6 (00:25→20:16)
[2017-03-02] MEDS: MEROPENEM 1,000 MG in SODIUM CHLORIDE 0.9% 100 ML IV SCH (06:01)
[2017-03-02] MEDS: CARBAMAZEPINE 200MG TABLET PO SCH ×2 (06:02→17:22)
[2017-03-02 07:52] LABS: BG BASE EXCESS 2.5 mmol/L (-2.0-2.0); BG CARBOXYHEMOGLOBIN 0.6 % (0.5-1.5); BG DEOXYHEMOGLOBIN 2.8 % (0.0-5.0); BG FRACTION INSPIRED OXYGEN 40; BG HCO3 ACT 25.9 mmol/L (22.0-26.0); BG METHEMOGLOBIN 0.3 % (0.0-1.5); BG OXYGEN SATURATION 97.2 % (92.0-98.5); BG OXYHEMOGLOBIN 96.3 % (94.0-97.0); BG PCO2 35.1 mmHg (35.0-45.0); BG PH 7.486 (7.350-7.450); BG PO2 96.7 mmHg (75.0-100.0); BG SAMPLE SITE LEFT RADIAL; BG TIDAL VOLUME(mL) 550 mL; BG VENT MODE VENT - A/C; BG VENT RATE 12 set
[2017-03-02] MEDS: PANTOPRAZOLE SODIUM 40 MG/VIAL IV SCH (08:42)
[2017-03-02] MEDS: LEVETIRACETAM 500 MG in SODIUM CHLORIDE 0.9% 100 ML IV SCH ×2 (08:42→20:21)
[2017-03-02] MEDS: THIAMINE HCL 100MG TABLET NG SCH (08:43)
[2017-03-02] MEDS: MULTIVITAMINS,THER W-MINERALS TABLET NG SCH (08:43)
[2017-03-02] MEDS: RIFAXIMIN 550 MG TABLET PO SCH ×2 (08:43→20:21)
[2017-03-02] MEDS: FOLIC ACID 1MG TABLET NG SCH (08:43)
[2017-03-02] MEDS ORDERED: LORAZEPAM 2MG/ML CPJ IV PRN (10:45)
[2017-03-02] MEDS: DEXT 5%/0.45% NACL KCL 20MEQ/L 1,000 ML IV SCH (12:31)
[2017-03-02] MEDS: CEFEPIME 1,000 MG in DEXTROSE 5% WATER 50 ML IV SCH (12:31)
[2017-03-02] MEDS: ACETAMINOPHEN 650MG/20.3ML UDC NG PRN (16:37)
[2017-03-03] VITALS (92 sets, daily range): BP systolic 81–151; BP diastolic 41–94
[2017-03-03] MEDS: IPRATROPIUM/ALBUTEROL 0.5-3(2.5)MG/3ML NEB HHN SCH ×5 (00:10→20:19)
[2017-03-03] MEDS: METOCLOPRAMIDE HCL 10MG/2ML VIAL IV SCH ×4 (00:38→17:00)
[2017-03-03] MEDS: CEFEPIME 1,000 MG in DEXTROSE 5% WATER 50 ML IV SCH ×2 (00:38→12:29)
[2017-03-03] MEDS: LACTULOSE 20G/30ML UDC NG SCH ×6 (00:38→20:09)
[2017-03-03 03:20] LABS: BG BASE EXCESS 5.8 mmol/L (-2.0-2.0); BG CARBOXYHEMOGLOBIN 0.2 % (0.5-1.5); BG FRACTION INSPIRED OXYGEN 100; BG HCO3 ACT 30.4 mmol/L (22.0-26.0); BG METHEMOGLOBIN 2.3 % (0.0-1.5); BG OXYGEN SATURATION 97.9 % (92.0-98.5); BG OXYHEMOGLOBIN 95.5 % (94.0-97.0); BG PCO2 44.9 mmHg (35.0-45.0); BG PH 7.449 (7.350-7.450); BG PO2 181.8 mmHg (75.0-100.0); BG SAMPLE SITE LEFT RADIAL; BG TIDAL VOLUME(mL) 550 mL; BG TOTAL HEMOGLOBIN 9.4 g/dL (12.0-18.0); BG VENT MODE VENT - A/C; BG VENT RATE 10 set
[2017-03-03] MEDS: DEXT 5%/0.45% NACL KCL 20MEQ/L 1,000 ML IV SCH ×2 (04:56→21:34)
[2017-03-03 05:39] LABS: BASOPHILS % 1.6 % (0.0-2.0); EOSINOPHILS % 0.5 % (0.0-5.0); HEMATOCRIT. 25.8 % (42.0-52.0); HEMOGLOBIN. 8.3 g/dL (14.0-18.0); LYMPHOCYTES % 14.2 % (20.0-50.0); MEAN CORPUSCULAR HEMOGLOBIN 25.8 pg (28.0-32.0); MEAN CORPUSCULAR VOLUME 80.3 fL (80.0-94.0); MEAN PLATELET VOLUME 7.7 fl (7.4-10.4); MONOCYTES % 12.5 % (2.0-8.0); NEUTROPHILS % 71.2 % (40.0-76.0); PLATELET 247 x1000/uL (130-400); RED BLOOD CELL COUNT 3.21 mill/uL (4.7-6.1); RED CELL DISTRIBUTION WIDTH 25.8 % (11.6-14.6)
[2017-03-03 06:04] LABS: CARBON DIOXIDE 29 mEq/L (21-32); CHLORIDE 100 mEq/L (98-107); CREATINE KINASE 762 IU/L (39-308)
[2017-03-03] MEDS: CARBAMAZEPINE 200MG TABLET PO SCH ×2 (06:29→16:59)
[2017-03-03] MEDS: PANTOPRAZOLE SODIUM 40 MG/VIAL IV SCH (08:26)
[2017-03-03] MEDS: ACETAMINOPHEN 650MG/20.3ML UDC NG PRN ×2 (08:26→20:20)
[2017-03-03] MEDS: RIFAXIMIN 550 MG TABLET PO SCH ×2 (08:27→20:09)
[2017-03-03] MEDS: FOLIC ACID 1MG TABLET NG SCH (08:27)
[2017-03-03] MEDS: THIAMINE HCL 100MG TABLET NG SCH (08:28)
[2017-03-03] MEDS: MULTIVITAMINS,THER W-MINERALS TABLET NG SCH (08:29)
[2017-03-03] MEDS: LEVETIRACETAM 500 MG in SODIUM CHLORIDE 0.9% 100 ML IV SCH ×2 (09:18→20:09)
[2017-03-04] VITALS (65 sets, daily range): BP systolic 102–160; BP diastolic 53–89
[2017-03-04] MEDS: CEFEPIME 1,000 MG in DEXTROSE 5% WATER 50 ML IV SCH ×2 (00:05→11:52)
[2017-03-04] MEDS: LACTULOSE 20G/30ML UDC NG SCH ×6 (00:05→20:49)
[2017-03-04] MEDS: METOCLOPRAMIDE HCL 10MG/2ML VIAL IV SCH ×4 (00:05→17:16)
[2017-03-04] MEDS: IPRATROPIUM/ALBUTEROL 0.5-3(2.5)MG/3ML NEB HHN SCH ×7 (00:32→23:56)
[2017-03-04] MEDS: CARBAMAZEPINE 200MG TABLET PO SCH ×2 (05:28→16:27)
[2017-03-04 06:02] LABS: PHOSPHORUS 3.6 mg/dL (2.5-4.9)
[2017-03-04 07:23] LABS: BG BASE EXCESS 2.2 mmol/L (-2.0-2.0); BG CARBOXYHEMOGLOBIN 0.3 % (0.5-1.5); BG FRACTION INSPIRED OXYGEN 40; BG HCO3 ACT 25.4 mmol/L (22.0-26.0); BG METHEMOGLOBIN 0.2 % (0.0-1.5); BG OXYHEMOGLOBIN 97.5 % (94.0-97.0); BG PH 7.492 (7.350-7.450); BG PO2 117.2 mmHg (75.0-100.0); BG SAMPLE SITE RIGHT RADIAL; BG TIDAL VOLUME(mL) 550 mL; BG TOTAL HEMOGLOBIN 8.9 g/dL (12.0-18.0); BG VENT MODE VENT - A/C; BG VENT RATE 10 set
[2017-03-04] MEDS: THIAMINE HCL 100MG TABLET NG SCH (08:43)
[2017-03-04] MEDS: RIFAXIMIN 550 MG TABLET PO SCH ×2 (08:43→20:49)
[2017-03-04] MEDS: MULTIVITAMINS,THER W-MINERALS TABLET NG SCH (08:43)
[2017-03-04] MEDS: LEVETIRACETAM 500 MG in SODIUM CHLORIDE 0.9% 100 ML IV SCH ×2 (08:43→20:49)
[2017-03-04] MEDS: FOLIC ACID 1MG TABLET NG SCH (08:43)
[2017-03-04] MEDS: PANTOPRAZOLE SODIUM 40 MG/VIAL IV SCH (08:44)
[2017-03-04 10:24] LABS: BG BASE EXCESS 3.3 mmol/L (-2.0-2.0); BG CARBOXYHEMOGLOBIN 0.3 % (0.5-1.5); BG DEOXYHEMOGLOBIN 2.1 % (0.0-5.0); BG FRACTION INSPIRED OXYGEN 40; BG HCO3 ACT 27.6 mmol/L (22.0-26.0); BG METHEMOGLOBIN 0.5 % (0.0-1.5); BG OXYGEN SATURATION 97.9 % (92.0-98.5); BG OXYHEMOGLOBIN 97.1 % (94.0-97.0); BG PCO2 40.6 mmHg (35.0-45.0); BG PO2 120.7 mmHg (75.0-100.0); BG PRESSURE SUPPORT 8; BG SAMPLE SITE RIGHT RADIAL; BG TOTAL HEMOGLOBIN 9.8 g/dL (12.0-18.0); BG VENT MODE VENT - CPAP
[2017-03-04] MEDS: DEXT 5%/0.45% NACL KCL 20MEQ/L 1,000 ML IV SCH (13:02)
[2017-03-05] VITALS (48 sets, daily range): BP systolic 104–146; BP diastolic 62–88
[2017-03-05] MEDS: METOCLOPRAMIDE HCL 10MG/2ML VIAL IV SCH ×5 (00:02→23:32)
[2017-03-05] MEDS: LACTULOSE 20G/30ML UDC NG SCH ×7 (00:02→23:32)
[2017-03-05] MEDS: CEFEPIME 1,000 MG in DEXTROSE 5% WATER 50 ML IV SCH ×2 (00:03→12:01)
[2017-03-05] MEDS: IPRATROPIUM/ALBUTEROL 0.5-3(2.5)MG/3ML NEB HHN SCH ×5 (03:49→20:06)
[2017-03-05 04:52] LABS: BASOPHILS % 2.7 % (0.0-2.0); EOSINOPHILS % 0.6 % (0.0-5.0); HEMATOCRIT. 26.3 % (42.0-52.0); HEMOGLOBIN. 8.4 g/dL (14.0-18.0); LYMPHOCYTES % 15.9 % (20.0-50.0); MEAN CORPUSCULAR HEMOGLOBIN 25.8 pg (28.0-32.0); MEAN CORPUSCULAR VOLUME 81.4 fL (80.0-94.0); MEAN PLATELET VOLUME 7.3 fl (7.4-10.4); MONOCYTES % 10.8 % (2.0-8.0); PLATELET 255 x1000/uL (130-400); RED BLOOD CELL COUNT 3.24 mill/uL (4.7-6.1); RED CELL DISTRIBUTION WIDTH 27.2 % (11.6-14.6)
[2017-03-05 05:17] LABS: CARBON DIOXIDE 25 mEq/L (21-32); CHLORIDE 100 mEq/L (98-107); CREATINE KINASE 368 IU/L (39-308)
[2017-03-05] MEDS: CARBAMAZEPINE 200MG TABLET PO SCH ×2 (06:02→16:25)
[2017-03-05] MEDS: DEXT 5%/0.45% NACL KCL 20MEQ/L 1,000 ML IV SCH (07:26)
[2017-03-05] MEDS: MULTIVITAMINS,THER W-MINERALS TABLET NG SCH (08:29)
[2017-03-05] MEDS: PANTOPRAZOLE SODIUM 40 MG/VIAL IV SCH (08:29)
[2017-03-05] MEDS: RIFAXIMIN 550 MG TABLET PO SCH ×2 (08:30→20:58)
[2017-03-05] MEDS: FOLIC ACID 1MG TABLET NG SCH (08:30)
[2017-03-05] MEDS: THIAMINE HCL 100MG TABLET NG SCH (08:30)
[2017-03-05] MEDS: LEVETIRACETAM 500 MG in SODIUM CHLORIDE 0.9% 100 ML IV SCH ×2 (08:44→20:58)
[2017-03-05 13:32] LABS: BG BASE EXCESS 2.8 mmol/L (-2.0-2.0); BG CARBOXYHEMOGLOBIN 0.1 % (0.5-1.5); BG DEOXYHEMOGLOBIN 2.5 % (0.0-5.0); BG FRACTION INSPIRED OXYGEN 40; BG HCO3 ACT 26.8 mmol/L (22.0-26.0); BG METHEMOGLOBIN 0.1 % (0.0-1.5); BG OXYGEN SATURATION 97.5 % (92.0-98.5); BG OXYHEMOGLOBIN 97.3 % (94.0-97.0); BG PCO2 38.3 mmHg (35.0-45.0); BG PH 7.462 (7.350-7.450); BG PO2 109.7 mmHg (75.0-100.0); BG PRESSURE SUPPORT 8; BG SAMPLE SITE RIGHT RADIAL; BG TIDAL VOLUME(mL) 550 mL; BG TOTAL HEMOGLOBIN 9.2 g/dL (12.0-18.0); BG VENT MODE VENT - SIMV; BG VENT RATE 6 set
[2017-03-06] VITALS (47 sets, daily range): BP systolic 103–143; BP diastolic 61–94
[2017-03-06] MEDS: IPRATROPIUM/ALBUTEROL 0.5-3(2.5)MG/3ML NEB HHN SCH ×7 (00:57→23:41)
[2017-03-06] MEDS: LACTULOSE 20G/30ML UDC NG SCH ×5 (03:06→20:19)
[2017-03-06] MEDS: METOCLOPRAMIDE HCL 10MG/2ML VIAL IV SCH ×3 (06:18→16:59)
[2017-03-06] MEDS: CARBAMAZEPINE 200MG TABLET PO SCH ×2 (06:18→16:59)
[2017-03-06] MEDS: RIFAXIMIN 550 MG TABLET PO SCH ×2 (08:22→20:19)
[2017-03-06] MEDS: THIAMINE HCL 100MG TABLET NG SCH (08:22)
[2017-03-06] MEDS: PANTOPRAZOLE SODIUM 40 MG/VIAL IV SCH (08:22)
[2017-03-06] MEDS: MULTIVITAMINS,THER W-MINERALS TABLET NG SCH (08:22)
[2017-03-06] MEDS: FOLIC ACID 1MG TABLET NG SCH (08:22)
[2017-03-06] MEDS: ACETAMINOPHEN 325MG TABLET PO PRN (08:23)
[2017-03-06] MEDS: LEVETIRACETAM 750 MG in SODIUM CHLORIDE 0.9% 100 ML IV SCH ×2 (09:16→20:19)
[2017-03-06] MEDS: DEXT 5%/0.45% NACL KCL 20MEQ/L 1,000 ML IV SCH ×2 (16:59)
[2017-03-07] VITALS (51 sets, daily range): BP systolic 100–189; BP diastolic 60–111
[2017-03-07] MEDS: LACTULOSE 20G/30ML UDC NG SCH ×6 (00:30→20:15)
[2017-03-07] MEDS: METOCLOPRAMIDE HCL 10MG/2ML VIAL IV SCH ×4 (00:30→18:50)
[2017-03-07] MEDS: IPRATROPIUM/ALBUTEROL 0.5-3(2.5)MG/3ML NEB HHN SCH ×6 (04:25→20:53)
[2017-03-07] MEDS: ACETAMINOPHEN 650MG/20.3ML UDC NG PRN (04:49)
[2017-03-07] MEDS: CARBAMAZEPINE 200MG TABLET PO SCH ×2 (06:11→18:50)
[2017-03-07] MEDS: LEVETIRACETAM 750 MG in SODIUM CHLORIDE 0.9% 100 ML IV SCH ×2 (09:02→20:16)
[2017-03-07] MEDS: PANTOPRAZOLE SODIUM 40 MG/VIAL IV SCH (09:02)
[2017-03-07 09:03] LABS: BG BASE EXCESS 1.1 mmol/L (-2.0-2.0); BG CARBOXYHEMOGLOBIN 0.6 % (0.5-1.5); BG DEOXYHEMOGLOBIN 1.9 % (0.0-5.0); BG HCO3 ACT 25.2 mmol/L (22.0-26.0); BG METHEMOGLOBIN 0.2 % (0.0-1.5); BG OXYGEN SATURATION 98.1 % (92.0-98.5); BG OXYHEMOGLOBIN 97.3 % (94.0-97.0); BG PH 7.439 (7.350-7.450); BG PO2 116.9 mmHg (75.0-100.0); BG SAMPLE SITE RIGHT RADIAL; BG TIDAL VOLUME(mL) 550 mL; BG TOTAL HEMOGLOBIN 10.4 g/dL (12.0-18.0); BG VENT MODE VENT - SIMV; BG VENT RATE 6 set
[2017-03-07] MEDS: THIAMINE HCL 100MG TABLET NG SCH (09:03)
[2017-03-07] MEDS: DEXT 5%/0.45% NACL KCL 20MEQ/L 1,000 ML IV SCH (09:03)
[2017-03-07] MEDS: RIFAXIMIN 550 MG TABLET PO SCH ×2 (09:03→20:15)
[2017-03-07] MEDS: MULTIVITAMINS,THER W-MINERALS TABLET NG SCH (09:03)
[2017-03-07] MEDS: FOLIC ACID 1MG TABLET NG SCH (09:03)
[2017-03-07] MEDS ORDERED: ACETYLCYSTEINE 100MG/ML 10% VIAL 4ML INH SCH ×2 (13:30→14:00)
[2017-03-07] MEDS ORDERED: ACETYLCYSTEINE 100MG/ML 10% VIAL 4ML INH ONE (13:45)
[2017-03-07] MEDS ORDERED: LIDOCAINE HCL 1% 20ML VIAL (Pyxis) INJ ONE (14:13)
[2017-03-07] MEDS ORDERED: IODIXANOL 320MG/ML 100 ML BOTTLE IV ONE (14:13)
[2017-03-07] MEDS ORDERED: ASPIRIN/SOD BICARB/CITRIC ACID 324MG TAB EFF ONE (14:41)
[2017-03-07] MEDS: METOPROLOL TARTRATE 25MG TABLET NG SCH ×2 (15:02→20:16)
[2017-03-07 15:03] LABS: BG BASE EXCESS -0.8 mmol/L (-2.0-2.0); BG CARBOXYHEMOGLOBIN 0.4 % (0.5-1.5); BG DEOXYHEMOGLOBIN 0.9 % (0.0-5.0); BG FRACTION INSPIRED OXYGEN 99.8; BG HCO3 ACT 26.2 mmol/L (22.0-26.0); BG METHEMOGLOBIN 0.3 % (0.0-1.5); BG OXYGEN SATURATION 99.1 % (92.0-98.5); BG OXYHEMOGLOBIN 98.4 % (94.0-97.0); BG PCO2 54.4 mmHg (35.0-45.0); BG PH 7.301 (7.350-7.450); BG PO2 193.4 mmHg (75.0-100.0); BG SAMPLE SITE LEFT RADIAL; BG TOTAL HEMOGLOBIN 11.3 g/dL (12.0-18.0); BG VENT MODE MASK - NRB
[2017-03-07] MEDS ORDERED: LORAZEPAM 2MG/ML CPJ IV PRN (15:15)
[2017-03-07] MEDS: CEFEPIME 1,000 MG in DEXTROSE 5% WATER 50 ML IV SCH (18:50)
[2017-03-07] MEDS ORDERED: NA PHOS,M-B/NA PHOS,DI-BA ENEMA 118ML PR PRN (21:00)
[2017-03-08] VITALS (89 sets, daily range): BP systolic 70–196; BP diastolic 46–112
[2017-03-08] MEDS: LACTULOSE 20G/30ML UDC NG SCH ×7 (00:22→23:25)
[2017-03-08] MEDS: ACETAMINOPHEN 650MG/20.3ML UDC NG PRN (00:22)
[2017-03-08] MEDS: METOCLOPRAMIDE HCL 10MG/2ML VIAL IV SCH ×5 (00:22→23:25)
[2017-03-08] MEDS: IPRATROPIUM/ALBUTEROL 0.5-3(2.5)MG/3ML NEB HHN SCH ×6 (00:25→20:25)
[2017-03-08] MEDS: ACETYLCYSTEINE 100MG/ML 10% VIAL 4ML INH SCH ×4 (00:26→16:24)
[2017-03-08] MEDS: DEXT 5%/0.45% NACL KCL 20MEQ/L 1,000 ML IV SCH ×2 (03:16→17:02)
[2017-03-08] MEDS: CEFEPIME 1,000 MG in DEXTROSE 5% WATER 50 ML IV SCH ×2 (05:48→17:02)
[2017-03-08] MEDS: CARBAMAZEPINE 200MG TABLET PO SCH ×2 (05:48→17:02)
[2017-03-08 08:12] LABS: BG BASE EXCESS -11.6 mmol/L (-2.0-2.0); BG CARBOXYHEMOGLOBIN 0.4 % (0.5-1.5); BG DEOXYHEMOGLOBIN 34.9 % (0.0-5.0); BG FRACTION INSPIRED OXYGEN 100; BG METHEMOGLOBIN 0.3 % (0.0-1.5); BG OXYGEN SATURATION 64.9 % (92.0-98.5); BG OXYHEMOGLOBIN 64.4 % (94.0-97.0); BG PCO2 67.1 mmHg (35.0-45.0); BG SAMPLE SITE RIGHT RADIAL; BG TIDAL VOLUME(mL) 500 mL; BG TOTAL HEMOGLOBIN 11.8 g/dL (12.0-18.0); BG VENT MODE VENT - A/C; BG VENT RATE 14 set
[2017-03-08] MEDS: NOREPINEPHRINE 4 MG in DEXTROSE 5% WATER 250 ML IV PRN ×3 (08:30→21:15)
[2017-03-08] MEDS: NOREPINEPHRINE 4MG in DEXT 5% WATER 250ML IV PRN (08:31)
[2017-03-08] MEDS ORDERED: SODIUM BICARBONATE 8.4% 1 MEQ/ML 50ML SYR IV SCH (08:45)
[2017-03-08] MEDS: METOPROLOL TARTRATE 25MG TABLET NG SCH ×2 (09:00→20:27)
[2017-03-08 09:01] LABS: CARBON DIOXIDE 25 mEq/L (21-32); CHLORIDE 95 mEq/L (98-107)
[2017-03-08] MEDS: DOPAMINE 800MG PREMIX 250 ML IV PRN ×2 (09:24→23:23)
[2017-03-08 09:52] LABS: BG BASE EXCESS -3.8 mmol/L (-2.0-2.0); BG CARBOXYHEMOGLOBIN 0.5 % (0.5-1.5); BG FRACTION INSPIRED OXYGEN 100; BG HCO3 ACT 25.1 mmol/L (22.0-26.0); BG METHEMOGLOBIN 0.4 % (0.0-1.5); BG OXYGEN SATURATION 79.8 % (92.0-98.5); BG OXYHEMOGLOBIN 79.1 % (94.0-97.0); BG PCO2 64.9 mmHg (35.0-45.0); BG PH 7.205 (7.350-7.450); BG PO2 58.3 mmHg (75.0-100.0); BG SAMPLE SITE RIGHT RADIAL; BG TIDAL VOLUME(mL) 450 mL; BG TOTAL HEMOGLOBIN 12.3 g/dL (12.0-18.0); BG VENT MODE VENT - A/C; BG VENT RATE 14 set
[2017-03-08] MEDS: SODIUM CHLORIDE 10% FOR INH 15ML VIAL NEB INH SCH ×4 (11:21→21:15)
[2017-03-08] MEDS: FOLIC ACID 1MG TABLET NG SCH (11:29)
[2017-03-08] MEDS: PANTOPRAZOLE SODIUM 40 MG/VIAL IV SCH (11:29)
[2017-03-08] MEDS: MULTIVITAMINS,THER W-MINERALS TABLET NG SCH (11:29)
[2017-03-08] MEDS: RIFAXIMIN 550 MG TABLET PO SCH ×2 (11:29→20:30)
[2017-03-08] MEDS: LEVETIRACETAM 750 MG in SODIUM CHLORIDE 0.9% 100 ML IV SCH ×2 (11:29→21:09)
[2017-03-08] MEDS ORDERED: GUAIFENESIN 200MG/10ML SUGAR FREE UDC PO PRN (12:15)
[2017-03-08] MEDS ORDERED: MAGNESIUM/ALUMINUM HYDROXIDE/SIMETHICONE 30ML UDC PO PRN (12:15)
[2017-03-08] MEDS ORDERED: ONDANSETRON HCL 4MG/2ML VIAL IV PRN (12:15)
[2017-03-08] MEDS ORDERED: DIPHENHYDRAMINE 50MG/ML VIAL IV PRN (12:15)
[2017-03-08] MEDS ORDERED: LORAZEPAM 2MG/ML CPJ IV PRN (12:30)
[2017-03-08] MEDS: THIAMINE HCL 100MG TABLET NG SCH (13:03)
[2017-03-08] MEDS ORDERED: SUCCINYLCHOLINE CHLORIDE 200MG/10ML VIAL IV ONE (14:00)
[2017-03-08] MEDS ORDERED: AMIODARONE HCL 50MG/ML 3ML VIAL IV ONE (14:00)
[2017-03-08] MEDS ORDERED: NALOXONE HCL 0.4 MG/ML 1ML VIAL ONE (14:00)
[2017-03-08] MEDS ORDERED: MAGNESIUM SULFATE 4G IN WATER 100ML PREMIX IV ONE (14:00)
[2017-03-08] MEDS ORDERED: ETOMIDATE 2MG/ML 10ML VIAL IV ONE (14:00)
[2017-03-08] MEDS ORDERED: CALCIUM CHLORIDE 1GM/10ML SYR IV ONE (14:00)
[2017-03-08] MEDS ORDERED: EPINEPHRINE 0.1MG/ML (1:10,000) 10ML SYR ONE (14:00)
[2017-03-08] MEDS ORDERED: STERILE WATER FOR INJECTION 10ML VIAL ONE (14:00)
[2017-03-09] VITALS (99 sets, daily range): BP systolic 59–170; BP diastolic 37–99
[2017-03-09] MEDS: SODIUM CHLORIDE 10% FOR INH 15ML VIAL NEB INH SCH ×6 (00:16→09:04)
[2017-03-09] MEDS: IPRATROPIUM/ALBUTEROL 0.5-3(2.5)MG/3ML NEB HHN SCH ×6 (00:54→20:13)
[2017-03-09] MEDS: NOREPINEPHRINE 8 MG in DEXT 5% WATER 242 ML IV PRN ×2 (02:15→16:55)
[2017-03-09] MEDS: ACETAMINOPHEN 650MG/20.3ML UDC NG PRN (04:29)
[2017-03-09] MEDS: LACTULOSE 20G/30ML UDC NG SCH ×5 (04:29→20:59)
[2017-03-09] MEDS: CEFEPIME 1,000 MG in DEXTROSE 5% WATER 50 ML IV SCH ×2 (06:28→17:18)
[2017-03-09] MEDS: METOCLOPRAMIDE HCL 10MG/2ML VIAL IV SCH ×3 (06:28→17:18)
[2017-03-09] MEDS: CARBAMAZEPINE 200MG TABLET PO SCH ×2 (06:29→16:29)
[2017-03-09] MEDS: ACETYLCYSTEINE 100MG/ML 10% VIAL 4ML INH SCH ×4 (08:41→16:10)
[2017-03-09] MEDS: THIAMINE HCL 100MG TABLET NG SCH (08:49)
[2017-03-09] MEDS: PANTOPRAZOLE SODIUM 40 MG/VIAL IV SCH (08:49)
[2017-03-09] MEDS: RIFAXIMIN 550 MG TABLET PO SCH ×2 (08:49→21:01)
[2017-03-09] MEDS: LEVETIRACETAM 750 MG in SODIUM CHLORIDE 0.9% 100 ML IV SCH ×2 (08:49→21:01)
[2017-03-09] MEDS: MULTIVITAMINS,THER W-MINERALS TABLET NG SCH (08:49)
[2017-03-09] MEDS: FOLIC ACID 1MG TABLET NG SCH (08:49)
[2017-03-09] MEDS: METOPROLOL TARTRATE 25MG TABLET NG SCH ×2 (09:00→21:00)
[2017-03-09 10:13] LABS: BG BASE EXCESS 0.4 mmol/L (-2.0-2.0); BG CARBOXYHEMOGLOBIN 0.3 % (0.5-1.5); BG DEOXYHEMOGLOBIN 2.8 % (0.0-5.0); BG FRACTION INSPIRED OXYGEN 60; BG HCO3 ACT 24.3 mmol/L (22.0-26.0); BG METHEMOGLOBIN 0.3 % (0.0-1.5); BG OXYGEN SATURATION 97.2 % (92.0-98.5); BG OXYHEMOGLOBIN 96.6 % (94.0-97.0); BG PCO2 36.2 mmHg (35.0-45.0); BG PH 7.444 (7.350-7.450); BG PO2 100.6 mmHg (75.0-100.0); BG SAMPLE SITE RIGHT RADIAL; BG TIDAL VOLUME(mL) 450 mL; BG VENT MODE VENT - A/C; BG VENT RATE 14 set
[2017-03-09] MEDS: DEXT 5%/0.45% NACL KCL 20MEQ/L 1,000 ML IV SCH (11:40)
[2017-03-09] MEDS: METHYLPREDNISOLONE SOD SUCC 125 MG/2 ML VIAL IV SCH ×2 (14:00→21:01)
[2017-03-10] VITALS (92 sets, daily range): BP systolic 93–142; BP diastolic 48–85
[2017-03-10] MEDS: ACETYLCYSTEINE 100MG/ML 10% VIAL 4ML INH SCH ×3 (00:03→16:08)
[2017-03-10] MEDS: IPRATROPIUM/ALBUTEROL 0.5-3(2.5)MG/3ML NEB HHN SCH ×6 (00:03→20:02)
[2017-03-10] MEDS: METOCLOPRAMIDE HCL 10MG/2ML VIAL IV SCH ×4 (00:10→18:08)
[2017-03-10] MEDS: LACTULOSE 20G/30ML UDC NG SCH ×6 (00:10→20:59)
[2017-03-10] MEDS: DEXT 5%/0.45% NACL KCL 20MEQ/L 1,000 ML IV SCH ×2 (04:14→20:59)
[2017-03-10] MEDS: METHYLPREDNISOLONE SOD SUCC 125 MG/2 ML VIAL IV SCH ×3 (05:05→21:00)
[2017-03-10] MEDS: CEFEPIME 1,000 MG in DEXTROSE 5% WATER 50 ML IV SCH ×2 (05:05→18:08)
[2017-03-10] MEDS: CARBAMAZEPINE 200MG TABLET PO SCH ×2 (06:48→16:27)
[2017-03-10] MEDS: METOPROLOL TARTRATE 25MG TABLET NG SCH ×2 (09:00→20:59)
[2017-03-10] MEDS: RIFAXIMIN 550 MG TABLET PO SCH ×2 (09:05→20:59)
[2017-03-10] MEDS: LEVETIRACETAM 750 MG in SODIUM CHLORIDE 0.9% 100 ML IV SCH ×2 (09:05→21:06)
[2017-03-10] MEDS: THIAMINE HCL 100MG TABLET NG SCH (09:05)
[2017-03-10] MEDS: FOLIC ACID 1MG TABLET NG SCH (09:05)
[2017-03-10] MEDS: PANTOPRAZOLE SODIUM 40 MG/VIAL IV SCH (09:05)
[2017-03-10] MEDS: MULTIVITAMINS,THER W-MINERALS TABLET NG SCH (09:05)
[2017-03-10 10:12] LABS: BASOPHILS % 0.5 % (0.0-2.0); HEMATOCRIT. 26.5 % (42.0-52.0); HEMOGLOBIN. 8.4 g/dL (14.0-18.0); LYMPHOCYTES % 6.9 % (20.0-50.0); MEAN CORPUSCULAR HEMOGLOBIN 26.1 pg (28.0-32.0); MEAN CORPUSCULAR VOLUME 82.1 fL (80.0-94.0); MONOCYTES % 5.9 % (2.0-8.0); NEUTROPHILS % 86.7 % (40.0-76.0); PLATELET 160 x1000/uL (130-400); RED BLOOD CELL COUNT 3.22 mill/uL (4.7-6.1); RED CELL DISTRIBUTION WIDTH 27.3 % (11.6-14.6)
[2017-03-10 10:27] LABS: CARBON DIOXIDE 26 mEq/L (21-32); CHLORIDE 111 mEq/L (98-107)
[2017-03-10] MEDS: MORPHINE SULFATE 4 MG/ML CPJ (NOT FOR IM USE) IV PRN (13:34)
[2017-03-10] MEDS ORDERED: LORAZEPAM 2MG/ML CPJ IV PRN (14:30)
[2017-03-11] VITALS (102 sets, daily range): BP systolic 117–195; BP diastolic 51–110
[2017-03-11] MEDS: ACETYLCYSTEINE 100MG/ML 10% VIAL 4ML INH SCH ×2 (00:10→17:26)
[2017-03-11] MEDS: IPRATROPIUM/ALBUTEROL 0.5-3(2.5)MG/3ML NEB HHN SCH ×6 (00:10→17:26)
[2017-03-11] MEDS: METOCLOPRAMIDE HCL 10MG/2ML VIAL IV SCH ×5 (00:42→23:52)
[2017-03-11] MEDS: LACTULOSE 20G/30ML UDC NG SCH ×7 (00:42→23:52)
[2017-03-11] MEDS: MORPHINE SULFATE 4 MG/ML CPJ (NOT FOR IM USE) IV PRN ×4 (06:04→22:11)
[2017-03-11] MEDS: METHYLPREDNISOLONE SOD SUCC 125 MG/2 ML VIAL IV SCH ×3 (06:04→20:56)
[2017-03-11] MEDS: CARBAMAZEPINE 200MG TABLET PO SCH ×2 (06:04→16:54)
[2017-03-11] MEDS: CEFEPIME 1,000 MG in DEXTROSE 5% WATER 50 ML IV SCH ×2 (06:05→17:00)
[2017-03-11 08:15] LABS: BG CARBOXYHEMOGLOBIN 0.7 % (0.5-1.5); BG DEOXYHEMOGLOBIN 0.5 % (0.0-5.0); BG FRACTION INSPIRED OXYGEN 60; BG HCO3 ACT 25.3 mmol/L (22.0-26.0); BG METHEMOGLOBIN 0.5 % (0.0-1.5); BG OXYGEN SATURATION 99.5 % (92.0-98.5); BG OXYHEMOGLOBIN 98.3 % (94.0-97.0); BG PCO2 38.8 mmHg (35.0-45.0); BG PH 7.432 (7.350-7.450); BG PO2 238.9 mmHg (75.0-100.0); BG SAMPLE SITE RIGHT RADIAL; BG TIDAL VOLUME(mL) 450 mL; BG TOTAL HEMOGLOBIN 8.4 g/dL (12.0-18.0); BG VENT MODE VENT - A/C; BG VENT RATE 14 set
[2017-03-11] MEDS: FOLIC ACID 1MG TABLET NG SCH (08:27)
[2017-03-11] MEDS: MULTIVITAMINS,THER W-MINERALS TABLET NG SCH (08:27)
[2017-03-11] MEDS: PANTOPRAZOLE SODIUM 40 MG/VIAL IV SCH (08:27)
[2017-03-11] MEDS: THIAMINE HCL 100MG TABLET NG SCH (08:28)
[2017-03-11] MEDS: RIFAXIMIN 550 MG TABLET PO SCH ×2 (08:28→20:52)
[2017-03-11] MEDS: METOPROLOL TARTRATE 25MG TABLET NG SCH ×2 (08:28→20:53)
[2017-03-11] MEDS: LEVETIRACETAM 750 MG in SODIUM CHLORIDE 0.9% 100 ML IV SCH ×2 (08:29→20:55)
[2017-03-11] MEDS: ACETAMINOPHEN 650MG/20.3ML UDC NG PRN ×2 (12:37→23:53)
[2017-03-11] MEDS: DEXT 5%/0.45% NACL KCL 20MEQ/L 1,000 ML IV SCH (13:33)
[2017-03-11] MEDS: IPRATROPIUM/ALBUTEROL 0.5-3(2.5)MG/3ML NEB INH PRN (20:05)
[2017-03-11] MEDS: CLONIDINE 0.1MG TABLET PO PRN (21:27)
[2017-03-12] VITALS (97 sets, daily range): BP systolic 129–176; BP diastolic 68–110
[2017-03-12] MEDS: ACETYLCYSTEINE 100MG/ML 10% VIAL 4ML INH SCH ×3 (00:21→16:25)
[2017-03-12] MEDS: IPRATROPIUM/ALBUTEROL 0.5-3(2.5)MG/3ML NEB HHN SCH ×6 (00:21→20:21)
[2017-03-12] MEDS: LACTULOSE 20G/30ML UDC NG SCH ×5 (05:55→20:15)
[2017-03-12] MEDS: CEFEPIME 1,000 MG in DEXTROSE 5% WATER 50 ML IV SCH ×2 (05:56→18:38)
[2017-03-12] MEDS: METOCLOPRAMIDE HCL 10MG/2ML VIAL IV SCH ×3 (05:56→18:38)
[2017-03-12] MEDS: METHYLPREDNISOLONE SOD SUCC 125 MG/2 ML VIAL IV SCH ×2 (05:56→14:06)
[2017-03-12] MEDS: DEXT 5%/0.45% NACL KCL 20MEQ/L 1,000 ML IV SCH ×2 (05:57→22:32)
[2017-03-12] MEDS: CARBAMAZEPINE 200MG TABLET PO SCH ×2 (05:57→16:20)
[2017-03-12] MEDS: PANTOPRAZOLE SODIUM 40 MG/VIAL IV SCH (08:35)
[2017-03-12] MEDS: THIAMINE HCL 100MG TABLET NG SCH (08:35)
[2017-03-12] MEDS: MULTIVITAMINS,THER W-MINERALS TABLET NG SCH (08:35)
[2017-03-12] MEDS: FOLIC ACID 1MG TABLET NG SCH (08:35)
[2017-03-12] MEDS: RIFAXIMIN 550 MG TABLET PO SCH ×2 (08:35→20:15)
[2017-03-12] MEDS: METOPROLOL TARTRATE 25MG TABLET NG SCH ×2 (08:36→20:18)
[2017-03-12 09:26] LABS: BG BASE EXCESS -1.4 mmol/L (-2.0-2.0); BG CARBOXYHEMOGLOBIN 0.1 % (0.5-1.5); BG DEOXYHEMOGLOBIN 1.6 % (0.0-5.0); BG FRACTION INSPIRED OXYGEN 40; BG METHEMOGLOBIN 0.6 % (0.0-1.5); BG OXYGEN SATURATION 98.4 % (92.0-98.5); BG OXYHEMOGLOBIN 97.7 % (94.0-97.0); BG PCO2 31.9 mmHg (35.0-45.0); BG PH 7.456 (7.350-7.450); BG PO2 141.1 mmHg (75.0-100.0); BG PRESSURE SUPPORT 15; BG SAMPLE SITE RIGHT RADIAL; BG TIDAL VOLUME(mL) 450 mL; BG TOTAL HEMOGLOBIN 9.9 g/dL (12.0-18.0); BG VENT MODE VENT - SIMV; BG VENT RATE 10 set
[2017-03-12] MEDS: LEVETIRACETAM 750 MG in SODIUM CHLORIDE 0.9% 100 ML IV SCH ×2 (09:40→21:35)
[2017-03-12] MEDS: ACETAMINOPHEN 325MG TABLET PO PRN (10:38)
[2017-03-12] MEDS: CLONIDINE 0.1MG TABLET PO PRN ×2 (11:45→18:42)
[2017-03-12 18:20] LABS: BG BASE EXCESS 0.5 mmol/L (-2.0-2.0); BG CARBOXYHEMOGLOBIN 0.3 % (0.5-1.5); BG FRACTION INSPIRED OXYGEN 40; BG HCO3 ACT 26.3 mmol/L (22.0-26.0); BG METHEMOGLOBIN 0.2 % (0.0-1.5); BG OXYHEMOGLOBIN 96.5 % (94.0-97.0); BG PCO2 47.7 mmHg (35.0-45.0); BG PH 7.359 (7.350-7.450); BG PO2 103.4 mmHg (75.0-100.0); BG PRESSURE SUPPORT 15; BG SAMPLE SITE RIGHT BRACHIAL; BG TIDAL VOLUME(mL) 450 mL; BG TOTAL HEMOGLOBIN 10.6 g/dL (12.0-18.0); BG VENT MODE VENT - SIMV; BG VENT RATE 6 set
[2017-03-12] MEDS: METHYLPREDNISOLONE SOD SUCC 40 MG/ML VIAL IV SCH (21:35)
[2017-03-13] VITALS (96 sets, daily range): BP systolic 129–173; BP diastolic 75–107
[2017-03-13] MEDS: IPRATROPIUM/ALBUTEROL 0.5-3(2.5)MG/3ML NEB HHN SCH ×7 (00:01→23:59)
[2017-03-13] MEDS: LACTULOSE 20G/30ML UDC NG SCH ×7 (00:37→23:42)
[2017-03-13] MEDS: METOCLOPRAMIDE HCL 10MG/2ML VIAL IV SCH ×5 (00:37→23:42)
[2017-03-13 06:13] LABS: AMMONIA 99 uMol/L (<32)
[2017-03-13] MEDS: CEFEPIME 1,000 MG in DEXTROSE 5% WATER 50 ML IV SCH ×2 (06:50→19:48)
[2017-03-13] MEDS: METHYLPREDNISOLONE SOD SUCC 40 MG/ML VIAL IV SCH (06:50)
[2017-03-13] MEDS: CARBAMAZEPINE 200MG TABLET PO SCH ×2 (06:51→16:07)
[2017-03-13] MEDS: LEVETIRACETAM 750 MG in SODIUM CHLORIDE 0.9% 100 ML IV SCH ×2 (09:08→20:44)
[2017-03-13] MEDS: PANTOPRAZOLE SODIUM 40 MG/VIAL IV SCH (09:09)
[2017-03-13] MEDS: METOPROLOL TARTRATE 25MG TABLET NG SCH ×2 (09:09→20:16)
[2017-03-13] MEDS: RIFAXIMIN 550 MG TABLET PO SCH ×2 (09:09→20:16)
[2017-03-13] MEDS: FOLIC ACID 1MG TABLET NG SCH (09:09)
[2017-03-13] MEDS: MULTIVITAMINS,THER W-MINERALS TABLET NG SCH (09:09)
[2017-03-13] MEDS: THIAMINE HCL 100MG TABLET NG SCH (09:09)
[2017-03-13 09:10] LABS: BG BASE EXCESS 2.3 mmol/L (-2.0-2.0); BG CARBOXYHEMOGLOBIN 0.2 % (0.5-1.5); BG DEOXYHEMOGLOBIN 1.7 % (0.0-5.0); BG FRACTION INSPIRED OXYGEN 40; BG HCO3 ACT 25.8 mmol/L (22.0-26.0); BG METHEMOGLOBIN 0.5 % (0.0-1.5); BG OXYGEN SATURATION 98.3 % (92.0-98.5); BG OXYHEMOGLOBIN 97.6 % (94.0-97.0); BG PCO2 35.9 mmHg (35.0-45.0); BG PH 7.474 (7.350-7.450); BG PRESSURE SUPPORT 15; BG SAMPLE SITE RIGHT RADIAL; BG TIDAL VOLUME(mL) 450 mL; BG TOTAL HEMOGLOBIN 10.5 g/dL (12.0-18.0); BG VENT MODE VENT - SIMV; BG VENT RATE 6 set
[2017-03-13 11:45] LABS: BG BASE EXCESS 1.5 mmol/L (-2.0-2.0); BG CARBOXYHEMOGLOBIN 0.2 % (0.5-1.5); BG DEOXYHEMOGLOBIN 1.6 % (0.0-5.0); BG FRACTION INSPIRED OXYGEN 40; BG HCO3 ACT 24.7 mmol/L (22.0-26.0); BG METHEMOGLOBIN 0.3 % (0.0-1.5); BG OXYGEN SATURATION 98.4 % (92.0-98.5); BG OXYHEMOGLOBIN 97.9 % (94.0-97.0); BG PCO2 33.8 mmHg (35.0-45.0); BG PH 7.481 (7.350-7.450); BG PO2 127.4 mmHg (75.0-100.0); BG PRESSURE SUPPORT 6; BG SAMPLE SITE RIGHT RADIAL; BG TOTAL HEMOGLOBIN 10.5 g/dL (12.0-18.0); BG VENT MODE VENT - CPAP
[2017-03-13] MEDS: DEXT 5%/0.45% NACL KCL 20MEQ/L 1,000 ML IV SCH (16:08)
[2017-03-13] MEDS ORDERED: ACETYLCYSTEINE 200MG/ML 20% VIAL 4ML PO SCH (21:00)
[2017-03-14] VITALS (71 sets, daily range): BP systolic 125–166; BP diastolic 74–97
[2017-03-14] MEDS: LACTULOSE 20G/30ML UDC NG SCH ×5 (03:25→19:52)
[2017-03-14] MEDS: IPRATROPIUM/ALBUTEROL 0.5-3(2.5)MG/3ML NEB HHN SCH ×5 (04:20→20:26)
[2017-03-14] MEDS: METOCLOPRAMIDE HCL 10MG/2ML VIAL IV SCH ×3 (05:50→18:16)
[2017-03-14] MEDS: CEFEPIME 1,000 MG in DEXTROSE 5% WATER 50 ML IV SCH ×2 (05:50→18:16)
[2017-03-14] MEDS: CARBAMAZEPINE 200MG TABLET PO SCH ×2 (05:50→16:29)
[2017-03-14] MEDS: PANTOPRAZOLE SODIUM 40 MG/VIAL IV SCH (08:36)
[2017-03-14] MEDS: FOLIC ACID 1MG TABLET NG SCH (08:36)
[2017-03-14] MEDS: METOPROLOL TARTRATE 25MG TABLET NG SCH ×2 (08:36→20:03)
[2017-03-14] MEDS: RIFAXIMIN 550 MG TABLET PO SCH ×2 (08:37→20:03)
[2017-03-14] MEDS: THIAMINE HCL 100MG TABLET NG SCH (08:37)
[2017-03-14] MEDS: MULTIVITAMINS,THER W-MINERALS TABLET NG SCH (08:37)
[2017-03-14] MEDS: DEXT 5%/0.45% NACL KCL 20MEQ/L 1,000 ML IV SCH (08:39)
[2017-03-14 09:12] LABS: BG BASE EXCESS 1.2 mmol/L (-2.0-2.0); BG CARBOXYHEMOGLOBIN 0.3 % (0.5-1.5); BG DEOXYHEMOGLOBIN 1.7 % (0.0-5.0); BG FRACTION INSPIRED OXYGEN 40; BG HCO3 ACT 24.5 mmol/L (22.0-26.0); BG METHEMOGLOBIN 0.1 % (0.0-1.5); BG OXYGEN SATURATION 98.3 % (92.0-98.5); BG OXYHEMOGLOBIN 97.9 % (94.0-97.0); BG PH 7.475 (7.350-7.450); BG PO2 130.4 mmHg (75.0-100.0); BG PRESSURE SUPPORT 10; BG SAMPLE SITE RIGHT RADIAL; BG TIDAL VOLUME(mL) 450 mL; BG TOTAL HEMOGLOBIN 10.7 g/dL (12.0-18.0); BG VENT MODE VENT - SIMV; BG VENT RATE 6 set
[2017-03-14] MEDS: LEVETIRACETAM 750 MG in SODIUM CHLORIDE 0.9% 100 ML IV SCH ×2 (09:53→20:03)
[2017-03-14] MEDS: ACETYLCYSTEINE 100MG/ML 10% VIAL 4ML INH SCH (13:18)
[2017-03-14 13:57] LABS: BG BASE EXCESS 0.5 mmol/L (-2.0-2.0); BG CARBOXYHEMOGLOBIN 0.3 % (0.5-1.5); BG DEOXYHEMOGLOBIN 2.2 % (0.0-5.0); BG FRACTION INSPIRED OXYGEN 40; BG HCO3 ACT 24.3 mmol/L (22.0-26.0); BG METHEMOGLOBIN 0.3 % (0.0-1.5); BG OXYGEN SATURATION 97.8 % (92.0-98.5); BG OXYHEMOGLOBIN 97.2 % (94.0-97.0); BG PCO2 36.3 mmHg (35.0-45.0); BG PH 7.444 (7.350-7.450); BG PO2 114.6 mmHg (75.0-100.0); BG PRESSURE SUPPORT 8; BG SAMPLE SITE LEFT RADIAL; BG TOTAL HEMOGLOBIN 11.1 g/dL (12.0-18.0); BG VENT MODE VENT - CPAP
[2017-03-15] VITALS (82 sets, daily range): BP systolic 60–157; BP diastolic 30–97
[2017-03-15] MEDS: LACTULOSE 20G/30ML UDC NG SCH ×6 (00:16→20:00)
[2017-03-15] MEDS: METOCLOPRAMIDE HCL 10MG/2ML VIAL IV SCH ×4 (00:16→17:57)
[2017-03-15] MEDS: IPRATROPIUM/ALBUTEROL 0.5-3(2.5)MG/3ML NEB HHN SCH ×6 (00:25→20:19)
[2017-03-15] MEDS: ACETYLCYSTEINE 100MG/ML 10% VIAL 4ML INH SCH ×3 (00:27→08:58)
[2017-03-15] MEDS: DEXT 5%/0.45% NACL KCL 20MEQ/L 1,000 ML IV SCH ×2 (04:32→21:04)
[2017-03-15] MEDS: CARBAMAZEPINE 200MG TABLET PO SCH ×2 (06:05→17:00)
[2017-03-15 08:31] LABS: BG BASE EXCESS 0.6 mmol/L (-2.0-2.0); BG CARBOXYHEMOGLOBIN 0.1 % (0.5-1.5); BG DEOXYHEMOGLOBIN 3.9 % (0.0-5.0); BG FRACTION INSPIRED OXYGEN 40; BG HCO3 ACT 23.4 mmol/L (22.0-26.0); BG METHEMOGLOBIN 0.1 % (0.0-1.5); BG OXYGEN SATURATION 96.1 % (92.0-98.5); BG OXYHEMOGLOBIN 95.9 % (94.0-97.0); BG PCO2 31.8 mmHg (35.0-45.0); BG PH 7.485 (7.350-7.450); BG PO2 86.6 mmHg (75.0-100.0); BG SAMPLE SITE RIGHT RADIAL; BG TOTAL HEMOGLOBIN 11.8 g/dL (12.0-18.0); BG VENT MODE MASK - AEROSOL
[2017-03-15] MEDS: THIAMINE HCL 100MG TABLET NG SCH (09:00)
[2017-03-15] MEDS: PANTOPRAZOLE SODIUM 40 MG/VIAL IV SCH (09:00)
[2017-03-15] MEDS: ACETAMINOPHEN 650MG/20.3ML UDC NG PRN (09:00)
[2017-03-15] MEDS: LEVETIRACETAM 750 MG in SODIUM CHLORIDE 0.9% 100 ML IV SCH ×2 (09:00→21:15)
[2017-03-15] MEDS: MULTIVITAMINS,THER W-MINERALS TABLET NG SCH (09:00)
[2017-03-15] MEDS: FOLIC ACID 1MG TABLET NG SCH (09:00)
[2017-03-15] MEDS: RIFAXIMIN 550 MG TABLET PO SCH ×2 (09:01→21:21)
[2017-03-15] MEDS: METOPROLOL TARTRATE 25MG TABLET NG SCH ×2 (09:01→21:00)
[2017-03-15] MEDS ORDERED: SODIUM BICARBONATE 7.5% 0.9 MEQ/ML 50ML SYR IV ONE (11:22)
[2017-03-15] MEDS ORDERED: EPINEPHRINE 0.1MG/ML (1:10,000) 10ML SYR ONE (11:22)
[2017-03-15] MEDS ORDERED: AMIODARONE HCL 50MG/ML 3ML VIAL IV ONE (11:22)
[2017-03-15] MEDS ORDERED: MAGNESIUM SULFATE 4G IN WATER 100ML PREMIX IV ONE (11:22)
[2017-03-15] MEDS ORDERED: CALCIUM CHLORIDE 1GM/10ML SYR IV ONE (11:22)
[2017-03-15] MEDS ORDERED: ETOMIDATE 2MG/ML 10ML VIAL IV ONE (11:22)
[2017-03-15] MEDS ORDERED: SUCCINYLCHOLINE CHLORIDE 200MG/10ML VIAL IV ONE (11:22)
[2017-03-15 12:45] LABS: BG BASE EXCESS -12.2 mmol/L (-2.0-2.0); BG CARBOXYHEMOGLOBIN 0.4 % (0.5-1.5); BG DEOXYHEMOGLOBIN 3.5 % (0.0-5.0); BG FRACTION INSPIRED OXYGEN 100; BG HCO3 ACT 16.9 mmol/L (22.0-26.0); BG METHEMOGLOBIN 0.2 % (0.0-1.5); BG OXYGEN SATURATION 96.5 % (92.0-98.5); BG OXYHEMOGLOBIN 95.9 % (94.0-97.0); BG PCO2 51.6 mmHg (35.0-45.0); BG PH 7.132 (7.350-7.450); BG PO2 119.1 mmHg (75.0-100.0); BG SAMPLE SITE RIGHT RADIAL; BG TIDAL VOLUME(mL) 450 mL; BG TOTAL HEMOGLOBIN 12.4 g/dL (12.0-18.0); BG VENT MODE VENT - A/C; BG VENT RATE 14 set
[2017-03-15] MEDS: NOREPINEPHRINE 8 MG in DEXT 5% WATER 242 ML IV PRN (12:55)
[2017-03-15 14:38] LABS: CARBON DIOXIDE 25 mEq/L (21-32); CHLORIDE 111 mEq/L (98-107); PHOSPHORUS 5.7 mg/dL (2.5-4.9)
[2017-03-15 14:57] LABS: HEMATOCRIT. 38.1 % (42.0-52.0); HEMOGLOBIN. 11.5 g/dL (14.0-18.0); MEAN CORPUSCULAR HEMOGLOBIN 25.8 pg (28.0-32.0); MEAN CORPUSCULAR VOLUME 85.7 fL (80.0-94.0); MEAN PLATELET VOLUME 8.5 fl (7.4-10.4); PLATELET 148 x1000/uL (130-400); RED BLOOD CELL COUNT 4.44 mill/uL (4.7-6.1); RED CELL DISTRIBUTION WIDTH 26.9 % (11.6-14.6)
[2017-03-15 15:26] LABS: PLATELET ESTIMATE NORMAL
[2017-03-16] VITALS (49 sets, daily range): BP systolic 79–157; BP diastolic 51–90
[2017-03-16] MEDS: LACTULOSE 20G/30ML UDC NG SCH ×6 (00:18→20:35)
[2017-03-16] MEDS: IPRATROPIUM/ALBUTEROL 0.5-3(2.5)MG/3ML NEB HHN SCH ×6 (00:32→20:10)
[2017-03-16] MEDS: METOCLOPRAMIDE HCL 10MG/2ML VIAL IV SCH ×4 (06:00→18:41)
[2017-03-16 06:16] LABS: BASOPHILS % 0.6 % (0.0-2.0); EOSINOPHILS % 1.3 % (0.0-5.0); LYMPHOCYTES % 13.5 % (20.0-50.0); MEAN CORPUSCULAR HEMOGLOBIN 26.1 pg (28.0-32.0); MEAN CORPUSCULAR VOLUME 83.1 fL (80.0-94.0); MEAN PLATELET VOLUME 8.3 fl (7.4-10.4); MONOCYTES % 4.7 % (2.0-8.0); NEUTROPHILS % 79.9 % (40.0-76.0); PLATELET 146 x1000/uL (130-400); RED BLOOD CELL COUNT 4.21 mill/uL (4.7-6.1); RED CELL DISTRIBUTION WIDTH 26.8 % (11.6-14.6)
[2017-03-16 06:35] LABS: CARBON DIOXIDE 25 mEq/L (21-32); CHLORIDE 111 mEq/L (98-107); PHOSPHORUS 2.9 mg/dL (2.5-4.9)
[2017-03-16] MEDS: ACETYLCYSTEINE 100MG/ML 10% VIAL 4ML INH SCH ×2 (06:35→12:02)
[2017-03-16] MEDS: MULTIVITAMINS,THER W-MINERALS TABLET NG SCH (08:13)
[2017-03-16] MEDS: FOLIC ACID 1MG TABLET NG SCH (08:13)
[2017-03-16] MEDS: CARBAMAZEPINE 200MG TABLET PO SCH ×2 (08:14→16:49)
[2017-03-16] MEDS: RIFAXIMIN 550 MG TABLET PO SCH ×2 (08:14→20:39)
[2017-03-16] MEDS: METOPROLOL TARTRATE 25MG TABLET NG SCH ×2 (08:14→20:39)
[2017-03-16] MEDS: ACETAMINOPHEN 650MG/20.3ML UDC NG PRN ×2 (08:15→20:35)
[2017-03-16] MEDS: THIAMINE HCL 100MG TABLET NG SCH (08:15)
[2017-03-16] MEDS: PANTOPRAZOLE SODIUM 40 MG/VIAL IV SCH (08:16)
[2017-03-16] MEDS: LEVETIRACETAM 750 MG in SODIUM CHLORIDE 0.9% 100 ML IV SCH ×2 (08:28→20:36)
[2017-03-16 08:46] LABS: BG BASE EXCESS 1.5 mmol/L (-2.0-2.0); BG CARBOXYHEMOGLOBIN 0.5 % (0.5-1.5); BG DEOXYHEMOGLOBIN 1.1 % (0.0-5.0); BG FRACTION INSPIRED OXYGEN 60; BG HCO3 ACT 24.5 mmol/L (22.0-26.0); BG METHEMOGLOBIN 0.4 % (0.0-1.5); BG OXYGEN SATURATION 98.9 % (92.0-98.5); BG PCO2 33.1 mmHg (35.0-45.0); BG PH 7.487 (7.350-7.450); BG PO2 138.8 mmHg (75.0-100.0); BG SAMPLE SITE RIGHT RADIAL; BG TIDAL VOLUME(mL) 450 mL; BG VENT MODE VENT - A/C; BG VENT RATE 18 set
[2017-03-16] MEDS: DEXT 5%/0.45% NACL KCL 20MEQ/L 1,000 ML IV SCH (14:40)
[2017-03-17] VITALS (91 sets, daily range): BP systolic 90–157; BP diastolic 54–90
[2017-03-17] MEDS: ACETYLCYSTEINE 100MG/ML 10% VIAL 4ML INH SCH (00:21)
[2017-03-17] MEDS: IPRATROPIUM/ALBUTEROL 0.5-3(2.5)MG/3ML NEB HHN SCH ×5 (00:22→20:41)
[2017-03-17] MEDS: LACTULOSE 20G/30ML UDC NG SCH ×7 (01:33→23:45)
[2017-03-17] MEDS: METOCLOPRAMIDE HCL 10MG/2ML VIAL IV SCH ×5 (01:40→23:48)
[2017-03-17] MEDS: DEXT 5%/0.45% NACL KCL 20MEQ/L 1,000 ML IV SCH ×2 (04:13→19:50)
[2017-03-17 06:00] LABS: BASOPHILS % 0.3 % (0.0-2.0); EOSINOPHILS % 2.6 % (0.0-5.0); HEMATOCRIT. 29.8 % (42.0-52.0); HEMOGLOBIN. 9.7 g/dL (14.0-18.0); LYMPHOCYTES % 14.8 % (20.0-50.0); MEAN CORPUSCULAR HEMOGLOBIN 27.1 pg (28.0-32.0); MEAN CORPUSCULAR VOLUME 83.1 fL (80.0-94.0); MEAN PLATELET VOLUME 8.4 fl (7.4-10.4); MONOCYTES % 5.8 % (2.0-8.0); NEUTROPHILS % 76.5 % (40.0-76.0); PLATELET 112 x1000/uL (130-400); RED BLOOD CELL COUNT 3.59 mill/uL (4.7-6.1); RED CELL DISTRIBUTION WIDTH 27.3 % (11.6-14.6)
[2017-03-17] MEDS: CARBAMAZEPINE 200MG TABLET PO SCH ×2 (06:16→18:00)
[2017-03-17 06:24] LABS: CHLORIDE 115 mEq/L (98-107)
[2017-03-17 06:27] LABS: AMMONIA 71 uMol/L (<32)
[2017-03-17 06:31] LABS: CARBON DIOXIDE 23 mEq/L (21-32)
[2017-03-17 06:37] LABS: INR 1.3; PARTIAL THROMBOPLASTIN TIME 29.4 sec (23.4-31.0); PROTHROMBIN TIME 13.8 sec (9.4-11.6)
[2017-03-17 08:25] LABS: BG BASE EXCESS -2.5 mmol/L (-2.0-2.0); BG CARBOXYHEMOGLOBIN 0.3 % (0.5-1.5); BG FRACTION INSPIRED OXYGEN 60; BG HCO3 ACT 20.3 mmol/L (22.0-26.0); BG METHEMOGLOBIN 0.3 % (0.0-1.5); BG OXYHEMOGLOBIN 98.4 % (94.0-97.0); BG PCO2 28.3 mmHg (35.0-45.0); BG PH 7.473 (7.350-7.450); BG PO2 169.9 mmHg (75.0-100.0); BG SAMPLE SITE RIGHT RADIAL; BG TIDAL VOLUME(mL) 450 mL; BG TOTAL HEMOGLOBIN 10.1 g/dL (12.0-18.0); BG VENT MODE VENT - A/C; BG VENT RATE 18 set
[2017-03-17] MEDS: METOPROLOL TARTRATE 25MG TABLET NG SCH ×2 (09:00→20:41)
[2017-03-17] MEDS: LEVETIRACETAM 750 MG in SODIUM CHLORIDE 0.9% 100 ML IV SCH ×2 (09:40→20:40)
[2017-03-17] MEDS: PANTOPRAZOLE SODIUM 40 MG/VIAL IV SCH (09:41)
[2017-03-17] MEDS: ACETAMINOPHEN 650MG/20.3ML UDC NG PRN (09:41)
[2017-03-17] MEDS: MULTIVITAMINS,THER W-MINERALS TABLET NG SCH (09:42)
[2017-03-17] MEDS: FOLIC ACID 1MG TABLET NG SCH (09:42)
[2017-03-17] MEDS: RIFAXIMIN 550 MG TABLET PO SCH ×2 (09:42→20:40)
[2017-03-17] MEDS: THIAMINE HCL 100MG TABLET NG SCH (09:42)
[2017-03-17] MEDS: CEFEPIME 1,000 MG in DEXTROSE 5% WATER 50 ML IV SCH ×2 (10:43→23:44)
[2017-03-17] MEDS ORDERED: SODIUM CHLORIDE 0.9% 10ML VIAL ONE (11:33)
[2017-03-17] MEDS ORDERED: SIMETHICONE 40 MG/0.6 ML 30ML ONE (11:33)
[2017-03-17] MEDS ORDERED: FENTANYL CITRATE/PF 50MCG/ML 2ML VIAL ONE (12:14)
[2017-03-17] MEDS ORDERED: MIDAZOLAM HCL 5 MG/5 ML VIAL ONE (12:15)
[2017-03-17] MEDS ORDERED: MIDAZOLAM HCL 5 MG/5 ML VIAL IV PRN (13:34)
[2017-03-17] MEDS ORDERED: FENTANYL CITRATE/PF 50MCG/ML 2ML VIAL IV PRN (13:34)
[2017-03-18] VITALS (92 sets, daily range): BP systolic 85–143; BP diastolic 50–93
[2017-03-18] MEDS: IPRATROPIUM/ALBUTEROL 0.5-3(2.5)MG/3ML NEB HHN SCH ×6 (00:02→20:17)
[2017-03-18] MEDS: ACETYLCYSTEINE 100MG/ML 10% VIAL 4ML INH SCH ×3 (00:02→16:35)
[2017-03-18] MEDS: ACETAMINOPHEN 325MG TABLET PO PRN (00:21)
[2017-03-18] MEDS: LACTULOSE 20G/30ML UDC NG SCH ×5 (04:00→20:49)
[2017-03-18] MEDS: CARBAMAZEPINE 200MG TABLET PO SCH ×2 (06:18→16:40)
[2017-03-18 07:52] LABS: BG BASE EXCESS -2.4 mmol/L (-2.0-2.0); BG CARBOXYHEMOGLOBIN 0.5 % (0.5-1.5); BG DEOXYHEMOGLOBIN 1.3 % (0.0-5.0); BG FRACTION INSPIRED OXYGEN 45; BG HCO3 ACT 20.6 mmol/L (22.0-26.0); BG METHEMOGLOBIN 0.2 % (0.0-1.5); BG OXYGEN SATURATION 98.7 % (92.0-98.5); BG PCO2 29.7 mmHg (35.0-45.0); BG PH 7.458 (7.350-7.450); BG PO2 137.1 mmHg (75.0-100.0); BG SAMPLE SITE RIGHT RADIAL; BG TIDAL VOLUME(mL) 450 mL; BG TOTAL HEMOGLOBIN 11.7 g/dL (12.0-18.0); BG VENT MODE VENT - A/C; BG VENT RATE 18 set
[2017-03-18] MEDS: METOCLOPRAMIDE HCL 10MG/2ML VIAL IV SCH ×3 (08:11→17:54)
[2017-03-18] MEDS: MULTIVITAMINS,THER W-MINERALS TABLET NG SCH (08:54)
[2017-03-18] MEDS: THIAMINE HCL 100MG TABLET NG SCH (08:54)
[2017-03-18] MEDS: FOLIC ACID 1MG TABLET NG SCH (08:54)
[2017-03-18] MEDS: RIFAXIMIN 550 MG TABLET PO SCH ×2 (08:54→20:48)
[2017-03-18] MEDS: LEVETIRACETAM 750 MG in SODIUM CHLORIDE 0.9% 100 ML IV SCH ×2 (08:54→20:50)
[2017-03-18] MEDS: PANTOPRAZOLE SODIUM 40 MG/VIAL IV SCH (08:54)
[2017-03-18] MEDS ORDERED: LORAZEPAM 2MG/ML CPJ IV PRN (10:30)
[2017-03-18] MEDS: CEFEPIME 1,000 MG in DEXTROSE 5% WATER 50 ML IV SCH ×2 (10:33→22:58)
[2017-03-18] MEDS: METOPROLOL TARTRATE 25MG TABLET NG SCH ×2 (10:34→20:50)
[2017-03-18] MEDS: MORPHINE SULFATE 2 MG/ML CPJ (NOT FOR IM USE) IV PRN ×2 (10:44→21:48)
[2017-03-18] MEDS: DEXT 5%/0.45% NACL KCL 20MEQ/L 1,000 ML IV SCH (13:39)
[2017-03-18] MEDS: CHLORDIAZEPOXIDE 25MG CAPSULE GT SCH ×2 (13:40→22:57)
[2017-03-19] VITALS (46 sets, daily range): BP systolic 95–135; BP diastolic 56–85
[2017-03-19] MEDS: METOCLOPRAMIDE HCL 10MG/2ML VIAL IV SCH
[2017-03-19] MEDS: IPRATROPIUM/ALBUTEROL 0.5-3(2.5)MG/3ML NEB HHN SCH ×6 (00:01→20:21)
[2017-03-19] MEDS: LACTULOSE 20G/30ML UDC NG SCH ×7 (00:53→23:33)
[2017-03-19] MEDS: MORPHINE SULFATE 2 MG/ML CPJ (NOT FOR IM USE) IV PRN (03:06)
[2017-03-19 05:45] LABS: BASOPHILS % 0.5 % (0.0-2.0); EOSINOPHILS % 2.5 % (0.0-5.0); HEMATOCRIT. 27.8 % (42.0-52.0); HEMOGLOBIN. 9.1 g/dL (14.0-18.0); LYMPHOCYTES % 23.4 % (20.0-50.0); MEAN CORPUSCULAR HEMOGLOBIN 27.8 pg (28.0-32.0); MEAN CORPUSCULAR VOLUME 84.4 fL (80.0-94.0); MONOCYTES % 6.2 % (2.0-8.0); NEUTROPHILS % 67.4 % (40.0-76.0); PLATELET 97 x1000/uL (130-400); RED BLOOD CELL COUNT 3.29 mill/uL (4.7-6.1); RED CELL DISTRIBUTION WIDTH 26.9 % (11.6-14.6)
[2017-03-19] MEDS: DEXT 5%/0.45% NACL KCL 20MEQ/L 1,000 ML IV SCH ×2 (05:56→20:48)
[2017-03-19] MEDS: CHLORDIAZEPOXIDE 25MG CAPSULE GT SCH ×3 (05:59→22:08)
[2017-03-19] MEDS: CARBAMAZEPINE 200MG TABLET PO SCH ×2 (06:00→17:30)
[2017-03-19 06:18] LABS: CARBON DIOXIDE 20 mEq/L (21-32); CHLORIDE 115 mEq/L (98-107)
[2017-03-19] MEDS: LEVETIRACETAM 750 MG in SODIUM CHLORIDE 0.9% 100 ML IV SCH ×2 (08:58→20:47)
[2017-03-19] MEDS: PANTOPRAZOLE SODIUM 40 MG/VIAL IV SCH (08:59)
[2017-03-19] MEDS: FOLIC ACID 1MG TABLET NG SCH (08:59)
[2017-03-19] MEDS: MULTIVITAMINS,THER W-MINERALS TABLET NG SCH (08:59)
[2017-03-19] MEDS: METOPROLOL TARTRATE 25MG TABLET NG SCH ×2 (08:59→20:48)
[2017-03-19] MEDS: RIFAXIMIN 550 MG TABLET PO SCH ×2 (09:00→20:47)
[2017-03-19] MEDS: CEFEPIME 1,000 MG in DEXTROSE 5% WATER 50 ML IV SCH ×2 (11:40→22:08)
[2017-03-19 12:45] LABS: BG BASE EXCESS -4.8 mmol/L (-2.0-2.0); BG CARBOXYHEMOGLOBIN 0.3 % (0.5-1.5); BG DEOXYHEMOGLOBIN 1.6 % (0.0-5.0); BG FRACTION INSPIRED OXYGEN 45; BG HCO3 ACT 18.7 mmol/L (22.0-26.0); BG METHEMOGLOBIN 0.3 % (0.0-1.5); BG OXYGEN SATURATION 98.4 % (92.0-98.5); BG OXYHEMOGLOBIN 97.8 % (94.0-97.0); BG PCO2 29.3 mmHg (35.0-45.0); BG PH 7.423 (7.350-7.450); BG PO2 141.8 mmHg (75.0-100.0); BG PRESSURE SUPPORT 12; BG SAMPLE SITE RIGHT RADIAL; BG TIDAL VOLUME(mL) 450 mL; BG TOTAL HEMOGLOBIN 9.6 g/dL (12.0-18.0); BG VENT MODE VENT - SIMV; BG VENT RATE 8 set
[2017-03-19] MEDS: METOCLOPRAMIDE 10MG/10 ML UDC PO SCH ×4 (15:00→23:33)
[2017-03-20] VITALS (34 sets, daily range): BP systolic 104–151; BP diastolic 63–87
[2017-03-20] MEDS: IPRATROPIUM/ALBUTEROL 0.5-3(2.5)MG/3ML NEB HHN SCH ×7 (00:19→23:15)
[2017-03-20] MEDS: ACETYLCYSTEINE 100MG/ML 10% VIAL 4ML INH SCH (00:19)
[2017-03-20] MEDS: LACTULOSE 20G/30ML UDC NG SCH ×5 (04:28→20:47)
[2017-03-20 05:27] LABS: BASOPHILS % 0.7 % (0.0-2.0); EOSINOPHILS % 2.6 % (0.0-5.0); HEMATOCRIT. 28.2 % (42.0-52.0); HEMOGLOBIN. 9.1 g/dL (14.0-18.0); LYMPHOCYTES % 20.6 % (20.0-50.0); MEAN CORPUSCULAR HEMOGLOBIN 27.3 pg (28.0-32.0); MEAN CORPUSCULAR VOLUME 84.4 fL (80.0-94.0); MEAN PLATELET VOLUME 8.3 fl (7.4-10.4); MONOCYTES % 6.7 % (2.0-8.0); NEUTROPHILS % 69.4 % (40.0-76.0); PLATELET 107 x1000/uL (130-400); RED BLOOD CELL COUNT 3.34 mill/uL (4.7-6.1); RED CELL DISTRIBUTION WIDTH 26.7 % (11.6-14.6)
[2017-03-20] MEDS: CHLORDIAZEPOXIDE 25MG CAPSULE GT SCH ×3 (06:10→22:21)
[2017-03-20] MEDS: METOCLOPRAMIDE 10MG/10 ML UDC PO SCH ×3 (06:10→18:37)
[2017-03-20] MEDS: CARBAMAZEPINE 200MG TABLET PO SCH ×2 (06:10→18:37)
[2017-03-20 06:17] LABS: CARBON DIOXIDE 22 mEq/L (21-32); CHLORIDE 116 mEq/L (98-107)
[2017-03-20] MEDS: FOLIC ACID 1MG TABLET NG SCH (08:52)
[2017-03-20] MEDS: MULTIVITAMINS,THER W-MINERALS TABLET NG SCH (08:52)
[2017-03-20] MEDS: RIFAXIMIN 550 MG TABLET PO SCH ×2 (08:52→20:47)
[2017-03-20] MEDS: PANTOPRAZOLE SODIUM 40 MG/VIAL IV SCH (08:52)
[2017-03-20] MEDS: METOPROLOL TARTRATE 25MG TABLET NG SCH ×2 (08:54→20:47)
[2017-03-20] MEDS: LEVETIRACETAM 750 MG in SODIUM CHLORIDE 0.9% 100 ML IV SCH ×2 (09:27→20:48)
[2017-03-20] MEDS: CEFEPIME 1,000 MG in DEXTROSE 5% WATER 50 ML IV SCH (11:19)
[2017-03-20 13:09] LABS: AMMONIA 48 uMol/L (<32)
[2017-03-20] MEDS: ENOXAPARIN 40MG/0.4ML SYR SUBCUT SCH (14:06)
[2017-03-20] MEDS: DEXT 5%/0.45% NACL KCL 20MEQ/L 1,000 ML IV SCH (14:07)
[2017-03-21] VITALS (16 sets, daily range): BP systolic 94–133; BP diastolic 57–87
[2017-03-21] MEDS: METOCLOPRAMIDE 10MG/10 ML UDC PO SCH ×5 (00:09→23:32)
[2017-03-21] MEDS: LACTULOSE 20G/30ML UDC NG SCH ×4 (00:09→11:55)
[2017-03-21] MEDS: CEFEPIME 1,000 MG in DEXTROSE 5% WATER 50 ML IV SCH ×3 (00:24→23:34)
[2017-03-21] MEDS: IPRATROPIUM/ALBUTEROL 0.5-3(2.5)MG/3ML NEB HHN SCH ×5 (03:30→20:52)
[2017-03-21] MEDS: CHLORDIAZEPOXIDE 25MG CAPSULE GT SCH ×3 (05:40→21:19)
[2017-03-21] MEDS: DEXT 5%/0.45% NACL KCL 20MEQ/L 1,000 ML IV SCH ×2 (05:40→23:34)
[2017-03-21 07:14] LABS: AMMONIA 58 uMol/L (<32)
[2017-03-21 07:20] LABS: BASOPHILS % 1.2 % (0.0-2.0); EOSINOPHILS % 3.3 % (0.0-5.0); HEMATOCRIT. 29.8 % (42.0-52.0); HEMOGLOBIN. 9.5 g/dL (14.0-18.0); MEAN CORPUSCULAR HEMOGLOBIN 27.1 pg (28.0-32.0); MEAN CORPUSCULAR VOLUME 84.6 fL (80.0-94.0); MEAN PLATELET VOLUME 7.5 fl (7.4-10.4); MONOCYTES % 7.8 % (2.0-8.0); NEUTROPHILS % 67.7 % (40.0-76.0); PLATELET 108 x1000/uL (130-400); RED BLOOD CELL COUNT 3.53 mill/uL (4.7-6.1); RED CELL DISTRIBUTION WIDTH 26.7 % (11.6-14.6)
[2017-03-21] MEDS: PANTOPRAZOLE SODIUM 40 MG/VIAL IV SCH (09:04)
[2017-03-21] MEDS: ENOXAPARIN 40MG/0.4ML SYR SUBCUT SCH (09:04)
[2017-03-21] MEDS: CARBAMAZEPINE 200MG TABLET PO SCH ×2 (09:05→17:22)
[2017-03-21] MEDS: RIFAXIMIN 550 MG TABLET PO SCH ×2 (09:05→21:19)
[2017-03-21] MEDS: FOLIC ACID 1MG TABLET NG SCH (09:05)
[2017-03-21] MEDS: METOPROLOL TARTRATE 25MG TABLET NG SCH ×2 (09:05→21:19)
[2017-03-21] MEDS: MULTIVITAMINS,THER W-MINERALS TABLET NG SCH (09:05)
[2017-03-21] MEDS: LEVETIRACETAM 750 MG in SODIUM CHLORIDE 0.9% 100 ML IV SCH (09:14)
[2017-03-21] MEDS: LEVETIRACETAM 500MG/5ML CUP NG SCH (21:19)
[2017-03-22] VITALS (18 sets, daily range): BP systolic 87–121; BP diastolic 54–74
[2017-03-22] MEDS: IPRATROPIUM/ALBUTEROL 0.5-3(2.5)MG/3ML NEB HHN SCH ×4 (00:57→12:21)
[2017-03-22] MEDS: METOCLOPRAMIDE 10MG/10 ML UDC PO SCH ×4 (06:25→23:31)
[2017-03-22] MEDS: CHLORDIAZEPOXIDE 25MG CAPSULE GT SCH ×3 (06:25→21:55)
[2017-03-22] MEDS: FOLIC ACID 1MG TABLET NG SCH (08:29)
[2017-03-22] MEDS: LEVETIRACETAM 500MG/5ML CUP NG SCH ×2 (08:29→21:56)
[2017-03-22] MEDS: RIFAXIMIN 550 MG TABLET PO SCH ×2 (08:29→21:55)
[2017-03-22] MEDS: METOPROLOL TARTRATE 25MG TABLET NG SCH ×2 (08:29→21:56)
[2017-03-22] MEDS: MULTIVITAMINS,THER W-MINERALS TABLET NG SCH (08:29)
[2017-03-22] MEDS: CARBAMAZEPINE 200MG TABLET PO SCH ×2 (08:29→17:30)
[2017-03-22] MEDS: PANTOPRAZOLE SODIUM 40 MG/VIAL IV SCH (08:29)
[2017-03-22] MEDS: ENOXAPARIN 40MG/0.4ML SYR SUBCUT SCH (08:30)
[2017-03-22] MEDS: CEFEPIME 1,000 MG in DEXTROSE 5% WATER 50 ML IV SCH ×2 (10:53→23:31)
[2017-03-22] MEDS: DEXT 5%/0.45% NACL KCL 20MEQ/L 1,000 ML IV SCH (16:29)
[2017-03-23] VITALS (17 sets, daily range): BP systolic 93–122; BP diastolic 59–74
[2017-03-23] MEDS: CHLORDIAZEPOXIDE 25MG CAPSULE GT SCH ×2 (05:50→13:03)
[2017-03-23] MEDS: METOCLOPRAMIDE 10MG/10 ML UDC PO SCH ×4 (05:50→23:19)
[2017-03-23] MEDS: CARBAMAZEPINE 200MG TABLET PO SCH ×2 (08:46→17:09)
[2017-03-23] MEDS: ENOXAPARIN 40MG/0.4ML SYR SUBCUT SCH (08:46)
[2017-03-23] MEDS: PANTOPRAZOLE SODIUM 40 MG/VIAL IV SCH (08:46)
[2017-03-23] MEDS: MULTIVITAMINS,THER W-MINERALS TABLET NG SCH (08:46)
[2017-03-23] MEDS: LEVETIRACETAM 500MG/5ML CUP NG SCH ×2 (08:46→21:31)
[2017-03-23] MEDS: FOLIC ACID 1MG TABLET NG SCH (08:46)
[2017-03-23] MEDS: RIFAXIMIN 550 MG TABLET PO SCH ×2 (08:46→21:31)
[2017-03-23] MEDS: METOPROLOL TARTRATE 25MG TABLET NG SCH ×2 (08:47→21:00)
[2017-03-23] MEDS: DEXT 5%/0.45% NACL KCL 20MEQ/L 1,000 ML IV SCH ×2 (09:02→23:19)
[2017-03-23] MEDS: CEFEPIME 1,000 MG in DEXTROSE 5% WATER 50 ML IV SCH ×2 (11:39→22:20)
[2017-03-23] MEDS: IPRATROPIUM/ALBUTEROL 0.5-3(2.5)MG/3ML NEB INH PRN ×2 (20:32→23:51)
[2017-03-24] VITALS (13 sets, daily range): BP systolic 91–120; BP diastolic 55–73
[2017-03-24] MEDS: IPRATROPIUM/ALBUTEROL 0.5-3(2.5)MG/3ML NEB INH PRN ×3 (07:30→16:34)
[2017-03-24] MEDS: CARBAMAZEPINE 200MG TABLET PO SCH ×2 (08:00→18:01)
[2017-03-24] MEDS: RIFAXIMIN 550 MG TABLET PO SCH ×2 (09:00→21:31)
[2017-03-24] MEDS: PANTOPRAZOLE SODIUM 40 MG/VIAL IV SCH (09:00)
[2017-03-24] MEDS: FOLIC ACID 1MG TABLET NG SCH (09:00)
[2017-03-24] MEDS: METOPROLOL TARTRATE 25MG TABLET NG SCH ×2 (09:00→21:00)
[2017-03-24] MEDS: ENOXAPARIN 40MG/0.4ML SYR SUBCUT SCH (09:00)
[2017-03-24] MEDS: LEVETIRACETAM 500MG/5ML CUP NG SCH ×2 (09:00→21:31)
[2017-03-24] MEDS: MULTIVITAMINS,THER W-MINERALS TABLET NG SCH (09:00)
[2017-03-24] MEDS: CEFEPIME 1,000 MG in DEXTROSE 5% WATER 50 ML IV SCH (10:54)
[2017-03-24] MEDS: METOCLOPRAMIDE 10MG/10 ML UDC PO SCH ×2 (12:03→18:01)
[2017-03-24 12:53] LABS: BG BASE EXCESS 6.7 mmol/L (-2.0-2.0); BG CARBOXYHEMOGLOBIN 0.3 % (0.5-1.5); BG DEOXYHEMOGLOBIN 7.1 % (0.0-5.0); BG FRACTION INSPIRED OXYGEN 40; BG HCO3 ACT 29.9 mmol/L (22.0-26.0); BG METHEMOGLOBIN 0.1 % (0.0-1.5); BG OXYGEN SATURATION 92.9 % (92.0-98.5); BG OXYHEMOGLOBIN 92.5 % (94.0-97.0); BG PCO2 37.6 mmHg (35.0-45.0); BG PH 7.519 (7.350-7.450); BG PO2 76.1 mmHg (75.0-100.0); BG PRESSURE SUPPORT 8; BG SAMPLE SITE RIGHT RADIAL; BG TOTAL HEMOGLOBIN 9.6 g/dL (12.0-18.0); BG VENT MODE VENT - CPAP
[2017-03-24 13:41] LABS: AMMONIA 67 uMol/L (<32)
[2017-03-24] MEDS: DEXT 5%/0.45% NACL KCL 20MEQ/L 1,000 ML IV SCH (18:07)
[2017-03-25] VITALS (12 sets, daily range): BP systolic 100–121; BP diastolic 58–71
[2017-03-25] MEDS: METOCLOPRAMIDE 10MG/10 ML UDC PO SCH ×4 (01:07→17:45)
[2017-03-25] MEDS: IPRATROPIUM/ALBUTEROL 0.5-3(2.5)MG/3ML NEB INH PRN ×2 (07:59→20:09)
[2017-03-25] MEDS: MULTIVITAMINS,THER W-MINERALS TABLET NG SCH (08:32)
[2017-03-25] MEDS: RIFAXIMIN 550 MG TABLET PO SCH ×2 (08:32→21:03)
[2017-03-25] MEDS: CARBAMAZEPINE 200MG TABLET PO SCH ×2 (08:32→17:45)
[2017-03-25] MEDS: LEVETIRACETAM 500MG/5ML CUP NG SCH ×2 (08:32→21:01)
[2017-03-25] MEDS: PANTOPRAZOLE SODIUM 40 MG/VIAL IV SCH (08:32)
[2017-03-25] MEDS: FOLIC ACID 1MG TABLET NG SCH (08:32)
[2017-03-25] MEDS: ENOXAPARIN 40MG/0.4ML SYR SUBCUT SCH (08:33)
[2017-03-25] MEDS: METOPROLOL TARTRATE 25MG TABLET NG SCH ×2 (09:00→20:50)
[2017-03-25] MEDS: DEXT 5%/0.45% NACL KCL 20MEQ/L 1,000 ML IV SCH (11:10)
[2017-03-25 17:23] LABS: BG BASE EXCESS 5.8 mmol/L (-2.0-2.0); BG CARBOXYHEMOGLOBIN 0.3 % (0.5-1.5); BG CPAP (cmH2O) 0 cm(H2O); BG DEOXYHEMOGLOBIN 1.8 % (0.0-5.0); BG HCO3 ACT 29.5 mmol/L (22.0-26.0); BG METHEMOGLOBIN 0.1 % (0.0-1.5); BG OXYGEN SATURATION 98.2 % (92.0-98.5); BG OXYHEMOGLOBIN 97.8 % (94.0-97.0); BG PCO2 38.9 mmHg (35.0-45.0); BG PH 7.497 (7.350-7.450); BG SAMPLE SITE RIGHT RADIAL; BG VENT MODE VENT - CPAP
[2017-03-25 20:07] LABS: CARBON DIOXIDE 30 mEq/L (21-32); CHLORIDE 98 mEq/L (98-107)
[2017-03-26] VITALS (12 sets, daily range): BP systolic 92–125; BP diastolic 54–72
[2017-03-26] MEDS: METOCLOPRAMIDE 10MG/10 ML UDC PO SCH ×5 (00:13→23:24)
[2017-03-26] MEDS: DEXT 5%/0.45% NACL KCL 20MEQ/L 1,000 ML IV SCH ×2 (03:09→19:55)
[2017-03-26] MEDS: LEVETIRACETAM 500MG/5ML CUP NG SCH ×2 (09:20→20:33)
[2017-03-26] MEDS: ENOXAPARIN 40MG/0.4ML SYR SUBCUT SCH (09:20)
[2017-03-26] MEDS: FOLIC ACID 1MG TABLET NG SCH (09:20)
[2017-03-26] MEDS: RIFAXIMIN 550 MG TABLET PO SCH ×2 (09:20→20:35)
[2017-03-26] MEDS: METOPROLOL TARTRATE 25MG TABLET NG SCH ×2 (09:20→20:35)
[2017-03-26] MEDS: MULTIVITAMINS,THER W-MINERALS TABLET NG SCH (09:21)
[2017-03-26] MEDS: PANTOPRAZOLE SODIUM 40 MG/VIAL IV SCH (10:21)
[2017-03-26] MEDS: CARBAMAZEPINE 200MG TABLET PO SCH ×2 (10:22→18:08)
[2017-03-26] MEDS: LACTULOSE 20G/30ML UDC PO SCH ×2 (14:48→21:25)
[2017-03-27] VITALS (12 sets, daily range): BP systolic 9–123; BP diastolic 45–77
[2017-03-27] MEDS: LACTULOSE 20G/30ML UDC PO SCH ×3 (06:13→21:28)
[2017-03-27] MEDS: METOCLOPRAMIDE 10MG/10 ML UDC PO SCH ×4 (06:13→23:17)
[2017-03-27 06:46] LABS: HEMATOCRIT 29.3 % (42.0-52.0); HEMOGLOBIN 9.8 g/dL (14.0-18.0); MEAN CORPUSCULAR HEMOGLOBIN 28.4 pg (28.0-32.0); MEAN CORPUSCULAR VOLUME 85.3 fL (80.0-94.0); PLATELET 116 x1000/uL (130-400); RED BLOOD CELL COUNT 3.44 mill/uL (4.7-6.1); RED CELL DISTRIBUTION WIDTH 26.1 % (11.6-14.6)
[2017-03-27 08:48] LABS: BG BASE EXCESS 4.1 mmol/L (-2.0-2.0); BG CARBOXYHEMOGLOBIN 0.3 % (0.5-1.5); BG DEOXYHEMOGLOBIN 3.1 % (0.0-5.0); BG FRACTION INSPIRED OXYGEN 40; BG HCO3 ACT 27.7 mmol/L (22.0-26.0); BG METHEMOGLOBIN 0.3 % (0.0-1.5); BG OXYGEN SATURATION 96.9 % (92.0-98.5); BG OXYHEMOGLOBIN 96.3 % (94.0-97.0); BG PCO2 37.7 mmHg (35.0-45.0); BG PH 7.484 (7.350-7.450); BG PO2 96.5 mmHg (75.0-100.0); BG PRESSURE SUPPORT 8; BG SAMPLE SITE RIGHT RADIAL; BG TOTAL HEMOGLOBIN 10.3 g/dL (12.0-18.0); BG VENT MODE VENT - CPAP
[2017-03-27] MEDS: MULTIVITAMINS,THER W-MINERALS TABLET NG SCH (09:55)
[2017-03-27] MEDS: FOLIC ACID 1MG TABLET NG SCH (09:55)
[2017-03-27] MEDS: PANTOPRAZOLE SODIUM 40 MG/VIAL IV SCH (09:55)
[2017-03-27] MEDS: ENOXAPARIN 40MG/0.4ML SYR SUBCUT SCH (09:55)
[2017-03-27] MEDS: LEVETIRACETAM 500MG/5ML CUP NG SCH ×2 (09:55→21:26)
[2017-03-27] MEDS: CARBAMAZEPINE 200MG TABLET PO SCH ×2 (09:56→18:04)
[2017-03-27] MEDS: RIFAXIMIN 550 MG TABLET PO SCH ×2 (09:56→21:26)
[2017-03-27] MEDS: METOPROLOL TARTRATE 25MG TABLET NG SCH ×2 (09:56→21:26)
[2017-03-27] MEDS: DEXT 5%/0.45% NACL KCL 20MEQ/L 1,000 ML IV SCH (13:33)
[2017-03-27] MEDS: ACETAMINOPHEN 325MG TABLET PO PRN (13:34)
[2017-03-28] VITALS (12 sets, daily range): BP systolic 87–154; BP diastolic 57–92
[2017-03-28] MEDS: METOCLOPRAMIDE 10MG/10 ML UDC PO SCH ×3 (05:25→18:52)
[2017-03-28] MEDS: LACTULOSE 20G/30ML UDC PO SCH ×3 (05:25→21:58)
[2017-03-28] MEDS: DEXT 5%/0.45% NACL KCL 20MEQ/L 1,000 ML IV SCH ×2 (05:37→22:50)
[2017-03-28] MEDS: RIFAXIMIN 550 MG TABLET PO SCH ×2 (08:27→20:28)
[2017-03-28] MEDS: FOLIC ACID 1MG TABLET NG SCH (08:27)
[2017-03-28] MEDS: LEVETIRACETAM 500MG/5ML CUP NG SCH ×2 (08:27→20:28)
[2017-03-28] MEDS: MULTIVITAMINS,THER W-MINERALS TABLET NG SCH (08:28)
[2017-03-28] MEDS: PANTOPRAZOLE SODIUM 40 MG/VIAL IV SCH (08:28)
[2017-03-28] MEDS: METOPROLOL TARTRATE 25MG TABLET NG SCH ×2 (08:28→20:28)
[2017-03-28] MEDS: CARBAMAZEPINE 200MG TABLET PO SCH ×2 (08:28→18:52)
[2017-03-28] MEDS: ENOXAPARIN 40MG/0.4ML SYR SUBCUT SCH (08:29)
[2017-03-29] VITALS (28 sets, daily range): BP systolic 81–179; BP diastolic 49–105
[2017-03-29] MEDS: METOCLOPRAMIDE 10MG/10 ML UDC PO SCH ×5 (00:05→23:29)
[2017-03-29] MEDS: LACTULOSE 20G/30ML UDC PO SCH ×3 (07:48→21:17)
[2017-03-29] MEDS: IPRATROPIUM/ALBUTEROL 0.5-3(2.5)MG/3ML NEB INH PRN (09:05)
[2017-03-29] MEDS: MULTIVITAMINS,THER W-MINERALS TABLET NG SCH (09:11)
[2017-03-29] MEDS: RIFAXIMIN 550 MG TABLET PO SCH ×2 (09:11→20:15)
[2017-03-29] MEDS: FOLIC ACID 1MG TABLET NG SCH (09:11)
[2017-03-29] MEDS: PANTOPRAZOLE SODIUM 40 MG/VIAL IV SCH (09:11)
[2017-03-29] MEDS: CARBAMAZEPINE 200MG TABLET PO SCH ×2 (09:12→17:59)
[2017-03-29] MEDS: METOPROLOL TARTRATE 25MG TABLET NG SCH ×2 (09:12→21:00)
[2017-03-29] MEDS: ENOXAPARIN 40MG/0.4ML SYR SUBCUT SCH (09:12)
[2017-03-29] MEDS: LEVETIRACETAM 500MG/5ML CUP NG SCH ×2 (09:17→20:16)
[2017-03-29] MEDS: ACETYLCYSTEINE 100MG/ML 10% VIAL 4ML INH SCH ×3 (14:09→23:32)
[2017-03-29] MEDS: IPRATROPIUM/ALBUTEROL 0.5-3(2.5)MG/3ML NEB HHN SCH ×4 (14:09→23:29)
[2017-03-29] MEDS: DEXT 5%/0.45% NACL KCL 20MEQ/L 1,000 ML IV SCH (15:36)
[2017-03-30] VITALS (16 sets, daily range): BP systolic 80–154; BP diastolic 41–91
[2017-03-30] MEDS: ACETYLCYSTEINE 100MG/ML 10% VIAL 4ML INH SCH ×5 (04:34→20:02)
[2017-03-30] MEDS: IPRATROPIUM/ALBUTEROL 0.5-3(2.5)MG/3ML NEB HHN SCH ×5 (04:34→20:01)
[2017-03-30] MEDS: LACTULOSE 20G/30ML UDC PO SCH ×3 (05:43→21:37)
[2017-03-30] MEDS: METOCLOPRAMIDE 10MG/10 ML UDC PO SCH ×2 (05:46→13:06)
[2017-03-30] MEDS: FOLIC ACID 1MG TABLET NG SCH (10:16)
[2017-03-30] MEDS: LEVETIRACETAM 500MG/5ML CUP NG SCH ×2 (10:16→21:33)
[2017-03-30] MEDS: RIFAXIMIN 550 MG TABLET PO SCH ×2 (10:16→21:37)
[2017-03-30] MEDS: METOPROLOL TARTRATE 25MG TABLET NG SCH ×2 (10:16→21:37)
[2017-03-30] MEDS: MULTIVITAMINS,THER W-MINERALS TABLET NG SCH (10:17)
[2017-03-30] MEDS: PANTOPRAZOLE SODIUM 40 MG/VIAL IV SCH (10:17)
[2017-03-30] MEDS: ENOXAPARIN 40MG/0.4ML SYR SUBCUT SCH (10:18)
[2017-03-30] MEDS: CARBAMAZEPINE 200MG TABLET PO SCH ×2 (10:19→18:58)
[2017-03-30] MEDS: DEXT 5%/0.45% NACL KCL 20MEQ/L 1,000 ML IV SCH (13:06)
[2017-03-31] VITALS (12 sets, daily range): BP systolic 93–156; BP diastolic 53–98
[2017-03-31] MEDS: ACETYLCYSTEINE 100MG/ML 10% VIAL 4ML INH SCH ×5 (00:09→20:40)
[2017-03-31] MEDS: IPRATROPIUM/ALBUTEROL 0.5-3(2.5)MG/3ML NEB HHN SCH ×6 (00:09→20:40)
[2017-03-31] MEDS: DEXT 5%/0.45% NACL KCL 20MEQ/L 1,000 ML IV SCH ×2 (00:30→17:10)
[2017-03-31] MEDS: LACTULOSE 20G/30ML UDC PO SCH ×3 (06:20→20:48)
[2017-03-31] MEDS: METOCLOPRAMIDE 10MG/10 ML UDC PO SCH ×3 (06:56→17:51)
[2017-03-31] MEDS: METOPROLOL TARTRATE 25MG TABLET NG SCH ×2 (10:02→21:00)
[2017-03-31] MEDS: RIFAXIMIN 550 MG TABLET PO SCH ×2 (10:02→20:54)
[2017-03-31] MEDS: LEVETIRACETAM 500MG/5ML CUP NG SCH ×2 (10:02→20:54)
[2017-03-31] MEDS: PANTOPRAZOLE SODIUM 40 MG/VIAL IV SCH (10:02)
[2017-03-31] MEDS: FOLIC ACID 1MG TABLET NG SCH (10:03)
[2017-03-31] MEDS: CARBAMAZEPINE 200MG TABLET PO SCH ×2 (10:03→17:51)
[2017-03-31] MEDS: MULTIVITAMINS,THER W-MINERALS TABLET NG SCH (10:03)
[2017-03-31] MEDS: ENOXAPARIN 40MG/0.4ML SYR SUBCUT SCH (10:12)
[2017-03-31 10:22] LABS: CARBON DIOXIDE 26 mEq/L (21-32); CHLORIDE 99 mEq/L (98-107)
[2017-03-31] MEDS: LORAZEPAM 2MG/ML CPJ IV PRN (12:56)
[2017-03-31] MEDS: ACETAMINOPHEN 325MG TABLET PO PRN (12:57)
[2017-03-31] MEDS: ACETAMINOPHEN 650MG/20.3ML UDC NG PRN (22:38)
[2017-04-01] VITALS (18 sets, daily range): BP systolic 96–163; BP diastolic 55–133
[2017-04-01] MEDS: METOCLOPRAMIDE 10MG/10 ML UDC PO SCH ×4 (00:26→17:10)
[2017-04-01] MEDS: ACETYLCYSTEINE 100MG/ML 10% VIAL 4ML INH SCH ×6 (00:41→20:11)
[2017-04-01] MEDS: IPRATROPIUM/ALBUTEROL 0.5-3(2.5)MG/3ML NEB HHN SCH ×6 (00:42→20:11)
[2017-04-01] MEDS: DEXT 5%/0.45% NACL KCL 20MEQ/L 1,000 ML IV SCH (02:33)
[2017-04-01] MEDS: LACTULOSE 20G/30ML UDC PO SCH ×3 (06:35→21:24)
[2017-04-01] MEDS: PANTOPRAZOLE SODIUM 40 MG/VIAL IV SCH (08:44)
[2017-04-01] MEDS: LEVETIRACETAM 500MG/5ML CUP NG SCH ×2 (08:44→21:23)
[2017-04-01] MEDS: ENOXAPARIN 40MG/0.4ML SYR SUBCUT SCH (08:45)
[2017-04-01] MEDS: CARBAMAZEPINE 200MG TABLET PO SCH ×2 (08:45→17:10)
[2017-04-01] MEDS: METOPROLOL TARTRATE 25MG TABLET NG SCH ×2 (08:45→21:22)
[2017-04-01] MEDS: MULTIVITAMINS,THER W-MINERALS TABLET NG SCH (08:45)
[2017-04-01] MEDS: FOLIC ACID 1MG TABLET NG SCH (08:45)
[2017-04-01] MEDS: RIFAXIMIN 550 MG TABLET PO SCH ×2 (08:45→21:22)
[2017-04-01] MEDS: ACETAMINOPHEN 325MG TABLET PO PRN (21:22)
[2017-04-02] VITALS (15 sets, daily range): BP systolic 112–148; BP diastolic 56–85
[2017-04-02] MEDS: IPRATROPIUM/ALBUTEROL 0.5-3(2.5)MG/3ML NEB HHN SCH ×6 (00:04→20:02)
[2017-04-02] MEDS: ACETYLCYSTEINE 100MG/ML 10% VIAL 4ML INH SCH ×5 (00:05→16:16)
[2017-04-02] MEDS: DEXT 5%/0.45% NACL KCL 20MEQ/L 1,000 ML IV SCH ×2 (02:05→16:14)
[2017-04-02] MEDS: LACTULOSE 20G/30ML UDC PO SCH (06:13)
[2017-04-02] MEDS: METOCLOPRAMIDE 10MG/10 ML UDC PO SCH ×2 (06:15)
[2017-04-02] MEDS: LEVETIRACETAM 500MG/5ML CUP NG SCH ×2 (09:13→20:40)
[2017-04-02] MEDS: PANTOPRAZOLE SODIUM 40 MG/VIAL IV SCH (09:13)
[2017-04-02] MEDS: MULTIVITAMINS,THER W-MINERALS TABLET NG SCH (09:13)
[2017-04-02] MEDS: RIFAXIMIN 550 MG TABLET PO SCH (09:13)
[2017-04-02] MEDS: FOLIC ACID 1MG TABLET NG SCH (09:13)
[2017-04-02] MEDS: METOPROLOL TARTRATE 25MG TABLET NG SCH ×2 (09:13→20:41)
[2017-04-02] MEDS: CARBAMAZEPINE 200MG TABLET PO SCH (09:13)
[2017-04-02] MEDS: ENOXAPARIN 40MG/0.4ML SYR SUBCUT SCH (09:14)
[2017-04-02] MEDS ORDERED: ACETAMINOPHEN 325MG TABLET NG PRN (10:41)
[2017-04-02] MEDS ORDERED: CLONIDINE 0.1MG TABLET NG PRN (10:42)
[2017-04-02] MEDS ORDERED: GUAIFENESIN 200MG/10ML SUGAR FREE UDC NG PRN (10:43)
[2017-04-02] MEDS ORDERED: MAGNESIUM/ALUMINUM HYDROXIDE/SIMETHICONE 30ML UDC NG PRN (10:46)
[2017-04-02] MEDS: METOCLOPRAMIDE 10MG/10 ML UDC NG SCH ×3 (13:02→23:00)
[2017-04-02] MEDS: LACTULOSE 20G/30ML UDC NG SCH ×2 (13:02→22:59)
[2017-04-02] MEDS: CARBAMAZEPINE 200MG TABLET NG SCH (17:22)
[2017-04-02] MEDS: RIFAXIMIN 550 MG TABLET NG SCH (20:40)
[2017-04-03] VITALS (12 sets, daily range): BP systolic 111–160; BP diastolic 63–87
[2017-04-03] MEDS: IPRATROPIUM/ALBUTEROL 0.5-3(2.5)MG/3ML NEB HHN SCH ×6 (00:07→20:12)
[2017-04-03] MEDS: ACETYLCYSTEINE 100MG/ML 10% VIAL 4ML INH SCH ×5 (00:07→17:21)
[2017-04-03] MEDS: LACTULOSE 20G/30ML UDC NG SCH ×3 (05:27→22:58)
[2017-04-03] MEDS: METOCLOPRAMIDE 10MG/10 ML UDC NG SCH ×4 (05:27→23:04)
[2017-04-03] MEDS: METOPROLOL TARTRATE 25MG TABLET NG SCH ×2 (08:24→20:46)
[2017-04-03] MEDS: LEVETIRACETAM 500MG/5ML CUP NG SCH ×2 (08:24→20:46)
[2017-04-03] MEDS: FOLIC ACID 1MG TABLET NG SCH (08:24)
[2017-04-03] MEDS: PANTOPRAZOLE SODIUM 40 MG/VIAL IV SCH (08:24)
[2017-04-03] MEDS: CARBAMAZEPINE 200MG TABLET NG SCH ×2 (08:24→17:32)
[2017-04-03] MEDS: MULTIVITAMINS,THER W-MINERALS TABLET NG SCH (08:24)
[2017-04-03] MEDS: RIFAXIMIN 550 MG TABLET NG SCH ×2 (08:24→20:46)
[2017-04-03] MEDS: ENOXAPARIN 40MG/0.4ML SYR SUBCUT SCH (08:25)
[2017-04-03 08:48] LABS: BG BASE EXCESS 2.7 mmol/L (-2.0-2.0); BG CARBOXYHEMOGLOBIN 0.3 % (0.5-1.5); BG DEOXYHEMOGLOBIN 2.7 % (0.0-5.0); BG FRACTION INSPIRED OXYGEN 40; BG HCO3 ACT 25.4 mmol/L (22.0-26.0); BG METHEMOGLOBIN 0.3 % (0.0-1.5); BG OXYGEN SATURATION 97.3 % (92.0-98.5); BG OXYHEMOGLOBIN 96.7 % (94.0-97.0); BG PCO2 32.6 mmHg (35.0-45.0); BG PO2 94.8 mmHg (75.0-100.0); BG PRESSURE SUPPORT 10; BG SAMPLE SITE RIGHT BRACHIAL; BG TIDAL VOLUME(mL) 450 mL; BG TOTAL HEMOGLOBIN 10.4 g/dL (12.0-18.0); BG VENT MODE VENT - SIMV; BG VENT RATE 8 set
[2017-04-03] MEDS: DEXT 5%/0.45% NACL KCL 20MEQ/L 1,000 ML IV SCH (11:15)
[2017-04-03] MEDS: ACETAMINOPHEN 650MG/20.3ML UDC NG PRN (11:15)
[2017-04-04] VITALS (12 sets, daily range): BP systolic 108–156; BP diastolic 58–89
[2017-04-04] MEDS: IPRATROPIUM/ALBUTEROL 0.5-3(2.5)MG/3ML NEB HHN SCH ×6 (00:36→20:27)
[2017-04-04] MEDS: LACTULOSE 20G/30ML UDC NG SCH ×3 (05:42→21:44)
[2017-04-04] MEDS: METOCLOPRAMIDE 10MG/10 ML UDC NG SCH ×4 (05:42→23:53)
[2017-04-04] MEDS: DEXT 5%/0.45% NACL KCL 20MEQ/L 1,000 ML IV SCH ×2 (05:43→21:43)
[2017-04-04] MEDS: METOPROLOL TARTRATE 25MG TABLET NG SCH ×2 (08:36→21:44)
[2017-04-04] MEDS: CARBAMAZEPINE 200MG TABLET NG SCH ×2 (08:36→17:18)
[2017-04-04] MEDS: LEVETIRACETAM 500MG/5ML CUP NG SCH ×2 (08:36→21:41)
[2017-04-04] MEDS: FOLIC ACID 1MG TABLET NG SCH (08:36)
[2017-04-04] MEDS: MULTIVITAMINS,THER W-MINERALS TABLET NG SCH (08:36)
[2017-04-04] MEDS: PANTOPRAZOLE SODIUM 40 MG/VIAL IV SCH (08:36)
[2017-04-04] MEDS: RIFAXIMIN 550 MG TABLET NG SCH ×2 (08:36→21:44)
[2017-04-04] MEDS: ENOXAPARIN 40MG/0.4ML SYR SUBCUT SCH (08:37)
[2017-04-04] MEDS: LORAZEPAM 2MG/ML CPJ IV PRN (23:54)
[2017-04-05] VITALS (12 sets, daily range): BP systolic 100–163; BP diastolic 57–91
[2017-04-05] MEDS: IPRATROPIUM/ALBUTEROL 0.5-3(2.5)MG/3ML NEB HHN SCH ×7 (00:24→23:58)
[2017-04-05] MEDS: LACTULOSE 20G/30ML UDC NG SCH ×3 (05:12→21:00)
[2017-04-05] MEDS: METOCLOPRAMIDE 10MG/10 ML UDC NG SCH ×4 (05:12→23:00)
[2017-04-05] MEDS: FOLIC ACID 1MG TABLET NG SCH (08:31)
[2017-04-05] MEDS: ENOXAPARIN 40MG/0.4ML SYR SUBCUT SCH (08:31)
[2017-04-05] MEDS: PANTOPRAZOLE SODIUM 40 MG/VIAL IV SCH (08:31)
[2017-04-05] MEDS: LEVETIRACETAM 500MG/5ML CUP NG SCH ×2 (08:31→20:33)
[2017-04-05] MEDS: LORAZEPAM 2MG/ML CPJ IV PRN ×2 (08:31→20:35)
[2017-04-05] MEDS: CARBAMAZEPINE 200MG TABLET NG SCH (08:31)
[2017-04-05] MEDS: RIFAXIMIN 550 MG TABLET NG SCH ×2 (08:32→20:34)
[2017-04-05] MEDS: MULTIVITAMINS,THER W-MINERALS TABLET NG SCH (08:32)
[2017-04-05] MEDS: METOPROLOL TARTRATE 25MG TABLET NG SCH ×2 (08:32→20:34)
[2017-04-05] MEDS: DIPHENHYDRAMINE 50MG/ML VIAL IV PRN (22:45)
[2017-04-06] VITALS (12 sets, daily range): BP systolic 76–133; BP diastolic 41–89
[2017-04-06] MEDS: IPRATROPIUM/ALBUTEROL 0.5-3(2.5)MG/3ML NEB HHN SCH ×5 (03:52→20:19)
[2017-04-06] MEDS: METOCLOPRAMIDE 10MG/10 ML UDC NG SCH ×4 (06:15→23:58)
[2017-04-06] MEDS: LACTULOSE 20G/30ML UDC NG SCH ×3 (06:15→21:01)
[2017-04-06] MEDS: FOLIC ACID 1MG TABLET NG SCH (09:08)
[2017-04-06] MEDS: PANTOPRAZOLE SODIUM 40 MG/VIAL IV SCH (09:08)
[2017-04-06] MEDS: MULTIVITAMINS,THER W-MINERALS TABLET NG SCH (09:08)
[2017-04-06] MEDS: ENOXAPARIN 40MG/0.4ML SYR SUBCUT SCH (09:09)
[2017-04-06] MEDS: LEVETIRACETAM 500MG/5ML CUP NG SCH ×2 (09:09→20:11)
[2017-04-06] MEDS: LORAZEPAM 2MG/ML CPJ IV PRN ×2 (14:33→23:50)
[2017-04-06] MEDS: DIPHENHYDRAMINE 50MG/ML VIAL IV PRN (23:50)
[2017-04-07] VITALS (12 sets, daily range): BP systolic 106–140; BP diastolic 62–85
[2017-04-07] MEDS: IPRATROPIUM/ALBUTEROL 0.5-3(2.5)MG/3ML NEB HHN SCH ×7 (00:32→23:52)
[2017-04-07] MEDS: DIPHENHYDRAMINE 50MG/ML VIAL IV PRN ×3 (05:47→23:58)
[2017-04-07] MEDS: LACTULOSE 20G/30ML UDC NG SCH ×3 (05:47→21:12)
[2017-04-07] MEDS: METOCLOPRAMIDE 10MG/10 ML UDC NG SCH ×4 (05:47→23:09)
[2017-04-07] MEDS: LORAZEPAM 2MG/ML CPJ IV PRN ×3 (05:47→23:58)
[2017-04-07] MEDS: ENOXAPARIN 40MG/0.4ML SYR SUBCUT SCH (08:17)
[2017-04-07] MEDS: LEVETIRACETAM 500MG/5ML CUP NG SCH ×2 (08:17→20:35)
[2017-04-08] VITALS (14 sets, daily range): BP systolic 97–155; BP diastolic 61–113
[2017-04-08] MEDS: IPRATROPIUM/ALBUTEROL 0.5-3(2.5)MG/3ML NEB HHN SCH ×5 (03:41→21:14)
[2017-04-08] MEDS: METOCLOPRAMIDE 10MG/10 ML UDC NG SCH ×4 (05:27→23:42)
[2017-04-08] MEDS: DIPHENHYDRAMINE 50MG/ML VIAL IV PRN (05:27)
[2017-04-08] MEDS: LORAZEPAM 2MG/ML CPJ IV PRN (05:27)
[2017-04-08] MEDS: LACTULOSE 20G/30ML UDC NG SCH ×4 (05:27→21:55)
[2017-04-08 09:21] LABS: HEMATOCRIT 33.3 % (42.0-52.0); HEMOGLOBIN 11.4 g/dL (14.0-18.0); MEAN CORPUSCULAR HEMOGLOBIN 29.1 pg (28.0-32.0); PLATELET 228 x1000/uL (130-400); RED BLOOD CELL COUNT 3.91 mill/uL (4.7-6.1); RED CELL DISTRIBUTION WIDTH 21.9 % (11.6-14.6)
[2017-04-08] MEDS: LEVETIRACETAM 500MG/5ML CUP NG SCH ×2 (10:42→20:35)
[2017-04-08] MEDS: ENOXAPARIN 40MG/0.4ML SYR SUBCUT SCH (11:55)
[2017-04-08 12:15] LABS: BASOPHILS % 0.5 % (0.0-2.0); EOSINOPHILS % 0.4 % (0.0-5.0); HEMATOCRIT. 35.2 % (42.0-52.0); HEMOGLOBIN. 12.1 g/dL (14.0-18.0); LYMPHOCYTES % 13.9 % (20.0-50.0); MEAN CORPUSCULAR HEMOGLOBIN 29.3 pg (28.0-32.0); MEAN CORPUSCULAR VOLUME 85.6 fL (80.0-94.0); MEAN PLATELET VOLUME 7.4 fl (7.4-10.4); MONOCYTES % 7.8 % (2.0-8.0); NEUTROPHILS % 77.4 % (40.0-76.0); PLATELET 255 x1000/uL (130-400); RED BLOOD CELL COUNT 4.11 mill/uL (4.7-6.1); RED CELL DISTRIBUTION WIDTH 21.9 % (11.6-14.6)
[2017-04-09] VITALS (12 sets, daily range): BP systolic 98–153; BP diastolic 57–88
[2017-04-09] MEDS: IPRATROPIUM/ALBUTEROL 0.5-3(2.5)MG/3ML NEB HHN SCH ×6 (00:52→20:47)
[2017-04-09] MEDS: LORAZEPAM 2MG/ML CPJ IV PRN ×4 (01:24→23:18)
[2017-04-09] MEDS: METOCLOPRAMIDE 10MG/10 ML UDC NG SCH ×4 (05:11→23:14)
[2017-04-09] MEDS: LACTULOSE 20G/30ML UDC NG SCH ×3 (05:11→21:02)
[2017-04-09 06:48] LABS: BASOPHILS % 0.4 % (0.0-2.0); EOSINOPHILS % 0.9 % (0.0-5.0); HEMATOCRIT. 35.2 % (42.0-52.0); HEMOGLOBIN. 11.9 g/dL (14.0-18.0); MEAN PLATELET VOLUME 7.5 fl (7.4-10.4); MONOCYTES % 9.3 % (2.0-8.0); NEUTROPHILS % 73.4 % (40.0-76.0); PLATELET 232 x1000/uL (130-400); RED CELL DISTRIBUTION WIDTH 21.8 % (11.6-14.6)
[2017-04-09 07:13] LABS: CARBON DIOXIDE 28 mEq/L (21-32); CHLORIDE 99 mEq/L (98-107)
[2017-04-09] MEDS: ENOXAPARIN 40MG/0.4ML SYR SUBCUT SCH (09:32)
[2017-04-09] MEDS: LEVETIRACETAM 500MG/5ML CUP NG SCH ×2 (11:02→21:01)
[2017-04-09] MEDS ORDERED: FENTANYL CITRATE/PF 50MCG/ML 2ML VIAL ONE (11:04)
[2017-04-09] MEDS ORDERED: CEFAZOLIN 1000MG PREMIX 0 ML IV ONE (11:04)
[2017-04-10] VITALS (12 sets, daily range): BP systolic 109–146; BP diastolic 64–100
[2017-04-10] MEDS: IPRATROPIUM/ALBUTEROL 0.5-3(2.5)MG/3ML NEB HHN SCH ×6 (00:42→20:42)
[2017-04-10] MEDS: LORAZEPAM 2MG/ML CPJ IV PRN ×2 (02:54→18:28)
[2017-04-10] MEDS: METOCLOPRAMIDE 10MG/10 ML UDC NG SCH ×3 (05:43→18:27)
[2017-04-10] MEDS: LACTULOSE 20G/30ML UDC NG SCH ×3 (05:43→21:55)
[2017-04-10 08:41] LABS: BG BASE EXCESS 5.1 mmol/L (-2.0-2.0); BG CARBOXYHEMOGLOBIN 0.4 % (0.5-1.5); BG DEOXYHEMOGLOBIN 1.9 % (0.0-5.0); BG FRACTION INSPIRED OXYGEN 50; BG HCO3 ACT 28.3 mmol/L (22.0-26.0); BG METHEMOGLOBIN 0.3 % (0.0-1.5); BG OXYGEN SATURATION 98.1 % (92.0-98.5); BG OXYHEMOGLOBIN 97.4 % (94.0-97.0); BG PCO2 36.6 mmHg (35.0-45.0); BG PH 7.506 (7.350-7.450); BG PO2 104.9 mmHg (75.0-100.0); BG SAMPLE SITE RIGHT RADIAL; BG TIDAL VOLUME(mL) 450 mL; BG TOTAL HEMOGLOBIN 11.8 g/dL (12.0-18.0); BG VENT MODE VENT - A/C; BG VENT RATE 16 set
[2017-04-10] MEDS: LEVETIRACETAM 500MG/5ML CUP NG SCH ×2 (09:55→20:51)
[2017-04-10] MEDS: ENOXAPARIN 40MG/0.4ML SYR SUBCUT SCH (09:56)
[2017-04-10] MEDS: ACETAMINOPHEN 650MG/20.3ML UDC GT PRN (10:06)
[2017-04-10] MEDS: DIPHENHYDRAMINE 50MG/ML VIAL IV PRN (18:28)
[2017-04-11] VITALS (12 sets, daily range): BP systolic 111–165; BP diastolic 48–90
[2017-04-11] MEDS: METOCLOPRAMIDE 10MG/10 ML UDC NG SCH ×5 (00:08→23:02)
[2017-04-11] MEDS: IPRATROPIUM/ALBUTEROL 0.5-3(2.5)MG/3ML NEB HHN SCH ×6 (00:11→19:56)
[2017-04-11] MEDS: LACTULOSE 20G/30ML UDC NG SCH ×3 (05:54→22:27)
[2017-04-11 08:00] LABS: BG BASE EXCESS 4.2 mmol/L (-2.0-2.0); BG CARBOXYHEMOGLOBIN 0.3 % (0.5-1.5); BG DEOXYHEMOGLOBIN 3.2 % (0.0-5.0); BG FRACTION INSPIRED OXYGEN 40; BG HCO3 ACT 27.7 mmol/L (22.0-26.0); BG METHEMOGLOBIN 0.3 % (0.0-1.5); BG OXYGEN SATURATION 96.8 % (92.0-98.5); BG OXYHEMOGLOBIN 96.2 % (94.0-97.0); BG PCO2 37.6 mmHg (35.0-45.0); BG PH 7.485 (7.350-7.450); BG PO2 91.1 mmHg (75.0-100.0); BG PRESSURE SUPPORT 20; BG SAMPLE SITE RIGHT BRACHIAL; BG TIDAL VOLUME(mL) 450 mL; BG TOTAL HEMOGLOBIN 11.6 g/dL (12.0-18.0); BG VENT MODE VENT - SIMV; BG VENT RATE 4 set
[2017-04-11] MEDS: ENOXAPARIN 40MG/0.4ML SYR SUBCUT SCH (09:40)
[2017-04-11] MEDS: LEVETIRACETAM 500MG/5ML CUP NG SCH ×2 (11:22→22:28)
[2017-04-12] VITALS (12 sets, daily range): BP systolic 98–134; BP diastolic 51–96
[2017-04-12] MEDS: IPRATROPIUM/ALBUTEROL 0.5-3(2.5)MG/3ML NEB HHN SCH ×6 (00:21→20:38)
[2017-04-12] MEDS: METOCLOPRAMIDE 10MG/10 ML UDC NG SCH ×4 (06:15→23:26)
[2017-04-12] MEDS: LACTULOSE 20G/30ML UDC NG SCH ×3 (06:19→20:44)
[2017-04-12] MEDS: LORAZEPAM 2MG/ML CPJ IV PRN (07:32)
[2017-04-12] MEDS: LEVETIRACETAM 500MG/5ML CUP NG SCH ×2 (08:08→20:44)
[2017-04-12] MEDS: ENOXAPARIN 40MG/0.4ML SYR SUBCUT SCH (08:09)
[2017-04-12 09:33] LABS: BG BASE EXCESS 0.5 mmol/L (-2.0-2.0); BG CARBOXYHEMOGLOBIN 0.1 % (0.5-1.5); BG DEOXYHEMOGLOBIN 4.3 % (0.0-5.0); BG FRACTION INSPIRED OXYGEN 40; BG HCO3 ACT 23.1 mmol/L (22.0-26.0); BG METHEMOGLOBIN 0.3 % (0.0-1.5); BG OXYGEN SATURATION 95.7 % (92.0-98.5); BG OXYHEMOGLOBIN 95.3 % (94.0-97.0); BG PCO2 30.4 mmHg (35.0-45.0); BG PH 7.498 (7.350-7.450); BG PO2 83.6 mmHg (75.0-100.0); BG PRESSURE SUPPORT 16; BG SAMPLE SITE RIGHT RADIAL; BG TIDAL VOLUME(mL) 450 mL; BG TOTAL HEMOGLOBIN 11.4 g/dL (12.0-18.0); BG VENT MODE VENT - SIMV; BG VENT RATE 4 set
[2017-04-13] VITALS (10 sets, daily range): BP systolic 118–154; BP diastolic 67–96
[2017-04-13] MEDS: IPRATROPIUM/ALBUTEROL 0.5-3(2.5)MG/3ML NEB HHN SCH ×6 (00:46→20:08)
[2017-04-13] MEDS: METOCLOPRAMIDE 10MG/10 ML UDC NG SCH ×4 (06:20→23:32)
[2017-04-13] MEDS: LACTULOSE 20G/30ML UDC NG SCH ×3 (06:20→21:22)
[2017-04-13 08:22] LABS: BG BASE EXCESS 6.5 mmol/L (-2.0-2.0); BG CARBOXYHEMOGLOBIN 0.3 % (0.5-1.5); BG DEOXYHEMOGLOBIN 1.4 % (0.0-5.0); BG FRACTION INSPIRED OXYGEN 40; BG HCO3 ACT 30.7 mmol/L (22.0-26.0); BG METHEMOGLOBIN 0.3 % (0.0-1.5); BG OXYGEN SATURATION 98.6 % (92.0-98.5); BG PCO2 42.4 mmHg (35.0-45.0); BG PH 7.478 (7.350-7.450); BG PO2 135.9 mmHg (75.0-100.0); BG PRESSURE SUPPORT 10; BG SAMPLE SITE RIGHT BRACHIAL; BG TIDAL VOLUME(mL) 450 mL; BG TOTAL HEMOGLOBIN 11.7 g/dL (12.0-18.0); BG VENT MODE VENT - SIMV; BG VENT RATE 4 set
[2017-04-13] MEDS: ENOXAPARIN 40MG/0.4ML SYR SUBCUT SCH (08:46)
[2017-04-13] MEDS: LEVETIRACETAM 500MG/5ML CUP NG SCH ×2 (08:46→21:22)
[2017-04-14] VITALS (12 sets, daily range): BP systolic 117–150; BP diastolic 47–95
[2017-04-14] MEDS: IPRATROPIUM/ALBUTEROL 0.5-3(2.5)MG/3ML NEB HHN SCH ×7 (00:05→23:57)
[2017-04-14] MEDS: LACTULOSE 20G/30ML UDC NG SCH ×3 (05:09→21:02)
[2017-04-14] MEDS: METOCLOPRAMIDE 10MG/10 ML UDC NG SCH ×3 (05:09→17:22)
[2017-04-14] MEDS: ENOXAPARIN 40MG/0.4ML SYR SUBCUT SCH (09:19)
[2017-04-14] MEDS: LEVETIRACETAM 500MG/5ML CUP NG SCH ×2 (09:19→20:50)
[2017-04-15] VITALS (12 sets, daily range): BP systolic 113–155; BP diastolic 60–96
[2017-04-15] MEDS: METOCLOPRAMIDE 10MG/10 ML UDC NG SCH ×5 (00:58→23:44)
[2017-04-15] MEDS: IPRATROPIUM/ALBUTEROL 0.5-3(2.5)MG/3ML NEB HHN SCH ×5 (03:28→20:09)
[2017-04-15] MEDS: LORAZEPAM 2MG/ML CPJ IV PRN ×5 (03:54→23:44)
[2017-04-15] MEDS: LACTULOSE 20G/30ML UDC NG SCH ×3 (06:04→21:05)
[2017-04-15] MEDS: ENOXAPARIN 40MG/0.4ML SYR SUBCUT SCH (08:19)
[2017-04-15] MEDS: LEVETIRACETAM 500MG/5ML CUP NG SCH ×2 (08:19→21:06)
[2017-04-16] VITALS (16 sets, daily range): BP systolic 96–156; BP diastolic 31–127
[2017-04-16] MEDS: IPRATROPIUM/ALBUTEROL 0.5-3(2.5)MG/3ML NEB HHN SCH ×6 (00:15→20:21)
[2017-04-16] MEDS: LACTULOSE 20G/30ML UDC NG SCH ×3 (05:58→21:02)
[2017-04-16] MEDS: METOCLOPRAMIDE 10MG/10 ML UDC NG SCH ×2 (05:58→13:01)
[2017-04-16] MEDS: LORAZEPAM 2MG/ML CPJ IV PRN (06:08)
[2017-04-16] MEDS: LEVETIRACETAM 500MG/5ML CUP NG SCH ×2 (09:01→20:44)
[2017-04-16] MEDS: ENOXAPARIN 40MG/0.4ML SYR SUBCUT SCH (09:01)
[2017-04-16] MEDS: ACETAMINOPHEN 650MG/20.3ML UDC GT PRN (20:45)
[2017-04-17] VITALS (13 sets, daily range): BP systolic 104–140; BP diastolic 66–89
[2017-04-17] MEDS: IPRATROPIUM/ALBUTEROL 0.5-3(2.5)MG/3ML NEB HHN SCH ×6 (00:38→20:09)
[2017-04-17] MEDS: LACTULOSE 20G/30ML UDC NG SCH ×3 (05:06→20:55)
[2017-04-17] MEDS: LEVETIRACETAM 500MG/5ML CUP NG SCH ×2 (09:21→20:46)
[2017-04-17] MEDS: ENOXAPARIN 40MG/0.4ML SYR SUBCUT SCH (09:21)
[2017-04-17] MEDS: ACETAMINOPHEN 650MG/20.3ML UDC GT PRN (09:22)
[2017-04-17] MEDS: LORAZEPAM 2MG/ML CPJ IV PRN (17:59)
[2017-04-18] VITALS (12 sets, daily range): BP systolic 99–146; BP diastolic 61–91
[2017-04-18] MEDS: IPRATROPIUM/ALBUTEROL 0.5-3(2.5)MG/3ML NEB HHN SCH ×6 (00:15→20:17)
[2017-04-18] MEDS: LACTULOSE 20G/30ML UDC NG SCH ×3 (05:17→20:55)
[2017-04-18 06:45] LABS: HEMATOCRIT 34.4 % (42.0-52.0); HEMOGLOBIN 11.3 g/dL (14.0-18.0); MEAN CORPUSCULAR HEMOGLOBIN 29.1 pg (28.0-32.0); MEAN CORPUSCULAR VOLUME 88.8 fL (80.0-94.0); RED BLOOD CELL COUNT 3.88 mill/uL (4.7-6.1); RED CELL DISTRIBUTION WIDTH 19.5 % (11.6-14.6)
[2017-04-18 07:00] LABS: CARBON DIOXIDE 32 mEq/L (21-32); CHLORIDE 110 mEq/L (98-107)
[2017-04-18 09:52] LABS: PLATELET 194 x1000/uL (130-400)
[2017-04-18] MEDS: ENOXAPARIN 40MG/0.4ML SYR SUBCUT SCH (10:30)
[2017-04-18] MEDS: LEVETIRACETAM 500MG/5ML CUP NG SCH ×2 (10:30→21:22)
[2017-04-19] VITALS (11 sets, daily range): BP systolic 112–159; BP diastolic 62–89
[2017-04-19] MEDS: IPRATROPIUM/ALBUTEROL 0.5-3(2.5)MG/3ML NEB HHN SCH ×5 (00:19→16:31)
[2017-04-19] MEDS: LORAZEPAM 2MG/ML CPJ IV PRN (03:40)
[2017-04-19] MEDS: LACTULOSE 20G/30ML UDC NG SCH ×2 (06:15→14:34)
[2017-04-19] MEDS: ENOXAPARIN 40MG/0.4ML SYR SUBCUT SCH (08:32)
== END 2017-04-19 17:56 | DRG 5 ==
LOC: ER 18:29 → EDBEDREQSVC 21:15 → EDBEDREQ 21:15 → MICUNO 22:34 → EDBEDREQTM 22:51 → EDBEDREQ 22:51 → CANRESERV 23:56 → ENRESERV 23:56 → ER 02-17 01:00 → CANBEDREQ 02-17 06:00 → MICUSO 03-01 01:00 → UNDODISIN 03-07 20:45 → 5EST 03-20 13:00
PROVIDERS: ADMIT Internal Medicine; ATTEND Internal Medicine
PROC: 0BH17EZ Insertion of Endotracheal Airway into Trachea, Via Natural or Artificial Opening (ICD-10-PCS; 2017-02-16)
PROC: 5A1935Z Respiratory Ventilation, Less than 24 Consecutive Hours (ICD-10-PCS; 2017-02-16)
PROC: 02HV33Z Insertion of Infusion Device into Superior Vena Cava, Percutaneous Approach (ICD-10-PCS; 2017-02-19)
PROC: B548ZZA Ultrasonography of Superior Vena Cava, Guidance (ICD-10-PCS; 2017-02-19)
PROC: 5A1955Z Respiratory Ventilation, Greater than 96 Consecutive Hours (ICD-10-PCS; principal; 2017-03-08)
PROC: 0BH17EZ Insertion of Endotracheal Airway into Trachea, Via Natural or Artificial Opening (ICD-10-PCS; 2017-03-08)
PROC: 5A12012 Performance of Cardiac Output, Single, Manual (ICD-10-PCS; 2017-03-08)
PROC: 5A2204Z Restoration of Cardiac Rhythm, Single (ICD-10-PCS; 2017-03-08)
PROC: 0BH17EZ Insertion of Endotracheal Airway into Trachea, Via Natural or Artificial Opening (ICD-10-PCS; 2017-03-15)
PROC: 5A1955Z Respiratory Ventilation, Greater than 96 Consecutive Hours (ICD-10-PCS; 2017-03-15)
PROC: 0B110F4 Bypass Trachea to Cutaneous with Tracheostomy Device, Open Approach (ICD-10-PCS; 2017-03-17)
PROC: 0DH63UZ Insertion of Feeding Device into Stomach, Percutaneous Approach (ICD-10-PCS; 2017-03-17)
DX: A41.9 Sepsis, unspecified organism (principal); R57.9 Shock, unspecified; I49.01 Ventricular fibrillation; J69.0 Pneumonitis due to inhalation of food and vomit; G93.41 Metabolic encephalopathy; E43 Unspecified severe protein-calorie malnutrition; F10.221 Alcohol dependence with intoxication delirium; E87.4 Mixed disorder of acid-base balance; K76.6 Portal hypertension; D61.818 Other pancytopenia; J96.01 Acute respiratory failure with hypoxia; Z99.11 Dependence on respirator [ventilator] status; F10.231 Alcohol dependence with withdrawal delirium; I46.9 Cardiac arrest, cause unspecified; E87.1 Hypo-osmolality and hyponatremia; E87.6 Hypokalemia; F41.9 Anxiety disorder, unspecified; G40.909 Epilepsy, unspecified, not intractable, without status epilepticus; K44.9 Diaphragmatic hernia without obstruction or gangrene; K70.30 Alcoholic cirrhosis of liver without ascites; K72.90 Hepatic failure, unspecified without coma; K85.90 Acute pancreatitis without necrosis or infection, unspecified; L30.9 Dermatitis, unspecified; M62.82 Rhabdomyolysis; N39.0 Urinary tract infection, site not specified; R65.20 Severe sepsis without septic shock; Y90.6 Blood alcohol level of 120-199 mg/100 ml; E72.20 Disorder of urea cycle metabolism, unspecified; K31.89 Other diseases of stomach and duodenum
CPT/HCPCS: 31500; 36415; 36569; 36600; 70450; 71010; 76937; 80048; 80053; 80076; 80202; 80305; 81001; 81003; 82140; 82375; 82550; 82805; 82962; 83605; 83690; 83735; 83880; 84100; 84443; 84478; 85025; 85027; 85610; 85730; 86705; 86709; 86803; 87040; 87070; 87086; 87340; 87493; 92950; 93005; 93306; 93970; 94002; 94003; 94640; 94644; 94664; 94667; 96361; 96374; 96375; 96376; 97110; 97162; 97164; 97530; 99291; 99292; A4216; A6261; C1725; C9113; G0482; J0171; J0282; J0330; J0690; J0692; J0696; J1200; J1265; J1644; J1650; J1953; J2060; J2185; J2250; J2270; J2310; J2405; J2543; J2704; J2765; J2920; J2930; J3010; J3370; J3411; J3475; J3480; J3490; J7030; J7040; J7042; J7050; J7060; J7131; J7608; J7620; J8597; Q9967; A4315